=== PATIENT | female | born 1960 | race Caucasian/White ===

== ENCOUNTER 2017-05-10 11:37 | Inpatient (IN) | payer SELFPAY ==
[~2017-05-10] VITALS: Ht 170.2 cm; Wt 123.4 kg
[~2017-05-10 11:37] MED LIST: AMOX1TAB11 PO; LACT1CAP19 PO; OXYC1TAB7 PO
[2017-05-10 12:23] LABS: BASO % 0 % (0-3); EOS % 1 % (0-3); HEMATOCRIT 26.8 % (36.0-47.0); HEMOGLOBIN 8.9 g/dL (12.0-15.5); LYMPH # 1.5 x10^3/uL (1.0-4.8); LYMPH % 13 % (24-48); MEAN CORPUSCULAR HEMOGLOBIN 29 pg (25-35); MEAN CORPUSCULAR HGB CONC 33 g/dL (31-37); MEAN CORPUSCULAR VOLUME 86 fL (79-100); MONO % 8 % (0-9); NEUT % 78 % (31-73); PLATELET COUNT 319 x10^3/uL (140-400); RED CELL DISTRIBUTION WIDTH 15.6 % (11.5-14.5)
[2017-05-10 12:31] LABS: CALCIUM 8.4 mg/dL (8.5-10.1); CREATININE 0.6 mg/dL (0.6-1.0); GFR 104.2; POTASSIUM 3.5 mmol/L (3.5-5.1)
[2017-05-10 12:36] LABS: ALBUMIN 2.3 g/dL (3.4-5.0); ALBUMIN/GLOBULIN RATIO 0.5 (1.0-1.7); TOTAL BILIRUBIN 1.2 mg/dL (0.2-1.0); TOTAL PROTEIN 6.9 g/dL (6.4-8.2)
[2017-05-10 12:39] LABS: BILIRUBIN,URINE NEGATIVE (NEG); GLUCOSE,URINE NEGATIVE (NEG); NITRITE,URINE NEGATIVE (NEG); PH,URINE 7.5; PROTEIN,URINE NEGATIVE (NEG-TRACE)
[2017-05-10] MEDS ORDERED: IV NORMAL SALINE 1000ML BAG 1,000 ML IV SCH (12:44)
[2017-05-10] MEDS ORDERED: ONDANSETRON PF 4 MG/2 ML VIAL. IV ONE (12:45)
[2017-05-10] MEDS ORDERED: fentaNYL PF VIAL 100 MCG/2 ML VIAL ONE (12:50)
[2017-05-10] MEDS ORDERED: ONDANSETRON PF 4 MG/2 ML VIAL. ONE (12:50)
[2017-05-10] MEDS: fentaNYL PF VIAL 100 MCG/2 ML VIAL IV PRN ×3 (12:53→15:23)
[2017-05-10 12:54] LABS: BACTERIA,URINE FEW /HPF (0-FEW); RBC,URINE RARE /HPF (0-2); SQUAMOUS EPITHELIAL CELL,UR FEW /LPF; WBC,URINE RARE /HPF (0-4)
[2017-05-10] MEDS ORDERED: CONTRAST GIVEN MC PRN (13:00)
[2017-05-10] MEDS ORDERED: IOHEXOL 300 MG/ML 100ML VIAL. IV ONE (13:00)
--- NOTE | 2017-05-10 13:14 | ED.ADGEN ---
Past Medical History Past Medical History: No Pertinent History Additional Past Medical Histor: BLE edema Past Surgical History: Alcohol Use: None Drug Use: None Adult General Chief Complaint Chief Complaint: GROIN PAIN HPI HPI Patient is a 56 year old woman, status post a laparoscopic cholecystectomy on 05/04, who presents with complaint of abdominal pain, that she states began over the last 2 days, located in the right lower quadrant and groin region. Patient states associated with nausea, no vomiting, states she's had a bowel movement for about 8 days, states she does have chronic constipation. She denies any fevers or chills, states she feels generally unwell, but denies any new injuries , any weakness, numbness, tingling, chest pain or shortness of breath. No pain with urination. She states that she does not recall who her surgeon was, states she is scheduled to follow-up with her surgeon again in a week or so. She states she is taking antibiotics but she is not certain what antibiotic it is, states he did try taking a pain pill at home today but the pain was too bad cramping or come to the ED. She is currently is a 6 out of 10 and a throbbing stabbing constant sensation in her lower abdomen. Review of Systems Review of Systems Constitutional: Denies fever or chills. [] Eyes: Denies change in visual acuity. [] HENT: Denies nasal congestion or sore throat. [] Respiratory: Denies cough or shortness of breath. [] Cardiovascular: Denies chest pain or edema. [] GI: Right lower quadrant and groin pain, right-sided, nausea, no vomiting, no diarrhea. Positive for constipation. : Denies dysuria. [] Musculoskeletal: Denies back pain or joint pain. [] Integument: Denies rash. [] Neurologic: Denies headache, focal weakness or sensory changes. [] Endocrine: Denies polyuria or polydipsia. [] Lymphatic: Denies swollen glands. [] Psychiatric: Denies depression or anxiety. [] Current Medications Current Medications Current Medications Medications (Trade) Dose Ordered Sig/Corby Start Time Stop Time Status Last Admin Dose Admin Fentanyl Citrate (Fentanyl 2ml Vial) 100 mcg STK-MED ONCE 05/10/17 12:50 05/10/17 12:51 DC Info (Do NOT chart on this entry -- for MONITORING) 1 each PRN DAILY PRN 05/10/17 13:00 05/12/17 12:59 Iohexol (Omnipaque 300 Mg/ml) 75 ml 1X ONCE 05/10/17 13:00 05/10/17 13:01 DC 05/10/17 13:27 75 ML Ondansetron HCl (Zofran) 4 mg STK-MED ONCE 05/10/17 12:50 05/10/17 12:51 DC Piperacillin Sod/ Tazobactam Sod (Zosyn Per Pharmacy) 1 each PRN DAILY PRN 05/10/17 15:00 Piperacillin Sod/ Tazobactam Sod (Zosyn) 3.375 gm ONCE ONCE 05/10/17 15:00 05/10/17 15:01 DC 05/10/17 15:10 3.375 GM Sodium Chloride 1,000 ml @ 1,000 mls/hr Q1H 05/10/17 12:44 05/10/17 13:43 DC 05/10/17 12:53 1,000 MLS/HR Allergies Allergies Allergies Coded Allergies Type Severity Reaction Last Updated Verified tetanus and diphtheria toxoids Allergy Intermediate 05/06/17 Yes Physical Exam Physical Exam Constitutional: Well developed, well nourished, no acute distress, non-toxic appearance. [] HENT: Normocephalic, atraumatic, bilateral external ears normal, oropharynx moist, no oral exudates, nose normal. [] Eyes: PERRLA, EOMI, conjunctiva normal, no discharge. [] Neck: Normal range of motion, no tenderness, supple, no stridor. [] Cardiovascular:Heart rate regular rhythm, no murmur, S1, S2, no rubs or gallops. [] Lungs & Thorax: Bilateral breath sounds clear to auscultation, no wheezing, rhonchi, rales. No chest wall crepitus or tenderness. [] Abdomen: Bowel sounds normal, soft, patient with surgical incisions noted with clean dry gauze intact, no evidence of erythema, induration, or obvious signs of infection patient with tenderness palpation across the right lower abdomen and right upper abdomen, voluntary guarding, no rebound, rigidity, no masses, no pulsatile masses. [] Skin: Warm, dry, no erythema, no rash. [] Back: No tenderness, no CVA tenderness. [] Extremities: No tenderness, no cyanosis, no clubbing, ROM intact, no edema. Negative Homans sign.[] Neurologic: Alert and oriented X 3, normal motor function, normal sensory function, no focal deficits noted. [] Psychologic: Affect normal, judgement normal, mood normal. [] Current Patient Data Vital Signs Vital Signs Date Time Temp Pulse Resp B/P (MAP) Pulse Ox O2 Delivery O2 Flow Rate FiO2 05/10/17 16:03 89 21 148/71 (96) 95 Room Air 05/10/17 11:44 98.0 98.0 Lab Values Laboratory Tests Test 05/10/17 11:45 05/10/17 12:20 05/10/17 12:30 White Blood Count 12.0 x10^3/uL (4.0-11.0) H Red Blood Count 3.10 x10^6/uL (3.50-5.40) L Hemoglobin 8.9 g/dL (12.0-15.5) L Hematocrit 26.8 % (36.0-47.0) L Mean Corpuscular Volume 86 fL (79-100) Mean Corpuscular Hemoglobin 29 pg (25-35) Mean Corpuscular Hemoglobin Concent 33 g/dL (31-37) Red Cell Distribution Width 15.6 % (11.5-14.5) H Platelet Count 319 x10^3/uL (140-400) Neutrophils (%) (Auto) 78 % (31-73) H Lymphocytes (%) (Auto) 13 % (24-48) L Monocytes (%) (Auto) 8 % (0-9) Eosinophils (%) (Auto) 1 % (0-3) Basophils (%) (Auto) 0 % (0-3) Neutrophils # (Auto) 9.3 x10^3uL (1.8-7.7) H Lymphocytes # (Auto) 1.5 x10^3/uL (1.0-4.8) Monocytes # (Auto) 1.0 x10^3/uL (0.0-1.1) Eosinophils # (Auto) 0.1 x10^3/uL (0.0-0.7) Basophils # (Auto) 0.0 x10^3/uL (0.0-0.2) Sodium Level 137 mmol/L (136-145) Potassium Level 3.5 mmol/L (3.5-5.1) Chloride Level 99 mmol/L (98-107) Carbon Dioxide Level 29 mmol/L (21-32) Anion Gap 9 (6-14) Blood Urea Nitrogen 11 mg/dL (7-20) Creatinine 0.6 mg/dL (0.6-1.0) Estimated GFR (Cockcroft-Gault) 104.2 BUN/Creatinine Ratio 18 (6-20) Glucose Level 109 mg/dL (70-99) H Calcium Level 8.4 mg/dL (8.5-10.1) L Total Bilirubin 1.2 mg/dL (0.2-1.0) H Aspartate Amino Transferase (AST) 90 U/L (15-37) H Alanine Aminotransferase (ALT) 65 U/L (14-59) H Alkaline Phosphatase 157 U/L (46-116) H Total Protein 6.9 g/dL (6.4-8.2) Albumin 2.3 g/dL (3.4-5.0) L Albumin/Globulin Ratio 0.5 (1.0-1.7) L Lipase 98 U/L (73-393) Lactic Acid Level 0.9 mmol/L (0.4-2.0) Urine Collection Type Void Urine Color Carey Urine Clarity Clear Urine pH 7.5 Urine Specific [place] 1.015 Urine Protein Negative mg/dL (NEG-TRACE) Urine Glucose (UA) Negative mg/dL (NEG) Urine Ketones (Stick) Negative mg/dL (NEG) Urine Blood Negative (NEG) Urine Nitrite Negative (NEG) Urine Bilirubin Negative (NEG) Urine Urobilinogen Dipstick 1.0 mg/dL (0.2 mg/dL) Urine Leukocyte Esterase Negative (NEG) Urine RBC Rare /HPF (0-2) Urine WBC Rare /HPF (0-4) Urine Squamous Epithelial Cells Few /LPF Urine Bacteria Few /HPF (0-FEW) Laboratory Tests 05/10/17 11:45 Laboratory Tests 05/10/17 11:45 EKG EKG EC: Sinus rhythm, heart rate 83 beats/minute, left axis deviation, QTC of 445, NV 160, QRS of 88, intervals within normal limits, no ST elevations or depressions, contour normality is noted in the inferior leads, abnormal ECG, does not meet STEMI criteria. As interpreted by me.[] Radiology/Procedures Radiology/Procedures [][facility] [address] [place] [address] IMAGING REPORT Signed PATIENT: ROMULO SALAZAR ACCOUNT: [id number] : 1960 LOCATION: ER AGE: 56 SEX: F EXAM STATUS: REG ER ORD. PHYSICIAN: NIKITA OWEN DO REASON: Abd pain/s/p laparoscopic cholecystectomy PROCEDURE: CT ABD PELV W/ IV CONTRST ONLY Indication: Abdominal pain. Post laparoscopic cholecystectomy. Technique: Axial images and coronal and sagittal reformatted images are provided. 75 mL of intravenous Omnipaque 300 was administered without complication. No comparison is available. One or more of the following individualized dose reduction techniques were utilized for this examination: 1. Automated exposure control 2. Adjustment of the mA and/or kV according to patient size 3. Use of iterative reconstruction technique Findings: There is atelectasis in the right lung base. There is a minimal right pleural effusion. The heart is not enlarged. There is mild fatty infiltration of the liver. Patient has underwent cholecystectomy. Fluid collection in the gallbladder fossa could represent hematoma measuring 7 x 3 cm in size. There is also fluid extending along the inferior surface of the liver. This perihepatic fluid has some peripheral enhancement. Please see axial image 42 and coronal images 38-44. This collection of fluid is not large enough to form a pigtail drain within it. The pancreas and the adrenals are unremarkable. There is ascites noted in the left upper quadrant adjacent to the spleen which is hyperdense measuring 60 Hounsfield units. The kidneys are symmetrically perfused. There is minimal atheromatous disease in the abdominal aorta. Retroperitoneal lymph nodes may be reactive. No adenopathy is apparent. There is probably a duodenal diverticulum. There is no dilated small bowel loop or air-fluid level. There is no free air. Hemoperitoneum about the spleen extends into the left paracolic gutter. Hemoperitoneum also extends into the pelvis. Bladder is unremarkable. Calcified phleboliths are noted. There is no adnexal mass. There are minimal degenerative changes in the spine. Impression: 1. Fluid collection noted along the liver with some peripheral enhancement. This could represent abscess. Bile leak/biloma is a consideration. Hepatobiliary scintigraphy can be considered. 2. Small amount of hemoperitoneum noted in the left upper quadrant and extending down into the left paracolic gutter and into the pelvis. 3. Minimal right pleural effusion. DICTATED and SIGNED BY: LOREE VELIZ MD DATE: 05/10/17 9246 CC: NIKITA OWEN DO; NO PCP ~ Course & Med Decision Making Course & Med Decision Making Pertinent Labs and Imaging studies reviewed. (See chart for details) Patient is very uncomfortable, agreeable to receiving pain medication, antiemetics, IV fluids, and CT of abdomen and pelvis. Laboratory studies also obtained. Patient noted to have mild leukocytosis at 12, with left shift without bandemia, LFTs are elevated, mildly, which may be due to patient's recent surgery, however patient noted to have fluid collection noted along the liver with some peripheral enhancement, which could represent abscess, with bile leak/biloma as a consideration. As above discussed with Dr. Multani, the patient's surgeon, at this time the patient had receiving a virus at home, will admit to the hospitalist service, with surgery consultation, and will continue IV antibiotics, symptomatic management. No indications for emergent surgical intervention or eye or intervention at this time based on findings. Will order HIDA scan for additional evaluation. I did discuss this with patient, she is resting more comfortably, although she continues to have discomfort after receiving several doses of analgesia in the ED, is agreeable with plan for admission and additional evaluation and monitoring with symptom management. Findings as above discussed with Dr. Lucas of internal medicine, patient was accepted to her service as a full admission to the medical surgical floor. Patient remained stable during her ED course, transfer to the floor without issue. Bridge orders entered per discussion. Dragon Disclaimer Dragon Disclaimer This electronic medical record was generated, in whole or in part, using a voice recognition dictation system. Departure Impression: Primary Impression: Abdominal pain Disposition: ADMITTED INPATIENT Admitting Physician: Other Condition: IMPROVED NIKITA OWEN DO May 10, 2017 13:14
--- NOTE | 2017-05-10 13:18 | EKG ---
[facility] [address] [place] [address] Test Date: 2017-05-10 Test Time: 13:02:05 Pat Name: ROMULO SALAZAR Department: Room: Gender: F Inspector Floor Sub Assembly: : 1960 Requested By: NIKITA OWEN Order Number: [id number] Reading MD: Measurements Intervals [place] Rate: 83 P: -42 IL: 160 QRS: -1 QRSD: 88 T: 18 QT: 374 QTc: 445 Interpretive Statements SINUS RHYTHM LEFTWARD AXIS NON SPECIFIC T ABNORMALITY BORDERLINE ECG No previous ECG available for comparison
--- NOTE | 2017-05-10 14:01 | RAD ---
Indication: Abdominal pain. Post laparoscopic cholecystectomy. Technique: Axial images and coronal and sagittal reformatted images are provided. 75 mL of intravenous Omnipaque 300 was administered without complication. No comparison is available. One or more of the following individualized dose reduction techniques were utilized for this examination: 1. Automated exposure control 2. Adjustment of the mA and/or kV according to patient size 3. Use of iterative reconstruction technique Findings: There is atelectasis in the right lung base. There is a minimal right pleural effusion. The heart is not enlarged. There is mild fatty infiltration of the liver. Patient has underwent cholecystectomy. Fluid collection in the gallbladder fossa could represent hematoma measuring 7 x 3 cm in size. There is also fluid extending along the inferior surface of the liver. This perihepatic fluid has some peripheral enhancement. Please see axial image 42 and coronal images 38-44. This collection of fluid is not large enough to form a pigtail drain within it. The pancreas and the adrenals are unremarkable. There is ascites noted in the left upper quadrant adjacent to the spleen which is hyperdense measuring 60 Hounsfield units. The kidneys are symmetrically perfused. There is minimal atheromatous disease in the abdominal aorta. Retroperitoneal lymph nodes may be reactive. No adenopathy is apparent. There is probably a duodenal diverticulum. There is no dilated small bowel loop or air-fluid level. There is no free air. Hemoperitoneum about the spleen extends into the left paracolic gutter. Hemoperitoneum also extends into the pelvis. Bladder is unremarkable. Calcified phleboliths are noted. There is no adnexal mass. There are minimal degenerative changes in the spine. Impression: 1. Fluid collection noted along the liver with some peripheral enhancement. This could represent abscess. Bile leak/biloma is a consideration. Hepatobiliary scintigraphy can be considered. 2. Small amount of hemoperitoneum noted in the left upper quadrant and extending down into the left paracolic gutter and into the pelvis. 3. Minimal right pleural effusion.
[2017-05-10] MEDS ORDERED: PIPERACILLIN/TAZO IV Push 3.375 GM VIAL. IVP ONE (15:00)
[2017-05-10] MEDS ORDERED: PIP/TAZO PER PHARMACY MC PRN (15:00)
[2017-05-10] MEDS ORDERED: ACETAMINOPHEN 325 MG TABLET. PO PRN (16:45)
[2017-05-10] MEDS ORDERED: ONDANSETRON PF 4 MG/2 ML VIAL. IV PRN (16:45)
[2017-05-10] MEDS: MORPHINE SULFATE 4 MG/ML DISP.SYRIN. IV PRN ×2 (17:29→22:09)
[2017-05-10 17:30] VITALS: BP 149/80
[2017-05-10] MEDS ORDERED: oxyCODONE/APAP 5/325 1 TAB TABLET PO PRN (18:30)
--- NOTE | 2017-05-10 18:43 | HP ---
ADMIT DATE: 05/10/2017 CHIEF COMPLAINT: Abdominal pain. HISTORY OF PRESENT ILLNESS: The patient is a morbidly obese 56-year-old woman who had undergone cholecystectomy on 05/05/2017. Postop course had been minorly complicated by leukocytosis, which resolved with antibiotics. The patient was discharged on antibiotics. She now presents with increasing abdominal pain, especially in the right lower quadrant. The patient relates that especially over the past 3 days, her pain has been moderately severe. Pain medications that she went home with do not seem to hold the pain anymore. She denies any fevers, chills, any nausea. She does have significant constipation, has not moved since 2 days prior to her surgery. She has underlying constipation, probably worsened by her narcotics. In the Emergency Room, a CAT scan was obtained, which revealed a fluid collection along the liver with some peripheral enhancement which could represent an abscess. Small amount of hemoperitoneum noted in the left upper quadrant extending down into the left pericolic gutter and into the pelvis. No abnormalities in the right lower quadrant. PAST MEDICAL HISTORY: Cholecystectomy as above, status post x 3. FAMILY HISTORY: Negative to her knowledge. SOCIAL HISTORY: She is , living with her , unfortunately continues to smoke about a pack a day and denies any alcohol or drug use. ALLERGIES: TETANUS and DIPHTHERIA TOXOIDS. MEDICATIONS: MAR reconciled with home medications. REVIEW OF SYSTEMS: Positive as per HPI. Rest of organ system review asked and answered negatively. PHYSICAL EXAMINATION: VITAL SIGNS: Show a blood pressure of 149/80, heart rate of 89, respiratory rate at 20. She is afebrile. GENERAL: This is a morbidly obese 56-year-old woman, awake, alert, in no acute distress, although very uncomfortable. HEENT: Shows no scleral icterus. NECK: Supple. LUNGS: Clear. HEART: Regular rate and rhythm. ABDOMEN: Has positive bowel sounds, soft, moderate to marked tenderness to palpation with lifting pannus in the right lower quadrant. The trocar sites are covered with Steri-Strips. Two have minimally dehisced with some secretion. EXTREMITIES: Show no edema. SKIN: Warm, soft and dry. LABORATORY DATA: CBC with a WBC of 12.0, hemoglobin 8.9, platelets of 319. Normal electrolytes. Chemistries with a BUN and creatinine of 11 and 0.6, normal electrolytes. LFTs slightly elevated at 90 and 65. Transaminases and alkaline phosphatase of 157, total bilirubin of 1.2, all of which are increased compared to labs drawn 2 days ago. Albumin at 2.3. Urine negative for infectious signs. RADIOGRAPHIC FINDINGS: CT of the abdomen as per HPI. ASSESSMENT AND PLAN: The patient is a 56-year-old woman presenting with increasing abdominal pain and constipation. A CT shows several abnormalities, none of which are definitive for infectious etiology. Without any fevers or elevation in her WBC, first consideration would be constipation. We will address this with mineral oil enema and GoLYTELY considering she has not moved in over a week. However, given the recent surgery we will have to be cautious for potential infectious etiology including a peritoneal abscess. She, however, is fairly asymptomatic in the area where a CT indicates abnormalities. We will switch her p.o. antibiotics to Zosyn. Continue to monitor. Surgery has been consulted. Without resolution of her symptoms, we will probably repeat a CT. We will hold off on Lovenox prophylaxis for now. Start SCDs in consideration of potential interventions. She is an ongoing smoker. We will start her on a nicotine patch as well. Pain will be addressed with IV morphine as well as oxycodone. Discussed with her that any narcotic pain medication will worsen constipation. DEDRICK JHA MD DR: SHAUNA/nts JOB#: [id number] / [id number] ROSANNA
[2017-05-10 19:00] VITALS: BP 135/75
[2017-05-10] MEDS ORDERED: PEG 3350/NA SULF,BICARB,CL/KCL 4,000 ML SOLUTION. PO ONE (19:00)
[2017-05-10] MEDS ORDERED: MINERAL OIL 133 ML ENEMA. PR ONE (19:00)
[2017-05-10] MEDS: LACTOBACILLUS RHAMNOSUS GG 1 CAPSULE. PO SCH (20:47)
[2017-05-10] MEDS: PIPERACILLIN/TAZO IV Push 3.375 GM VIAL. IVP SCH (22:09)
[2017-05-10 23:00] VITALS: BP 117/70
[2017-05-11 03:00] VITALS: BP 120/78
[2017-05-11 04:38] LABS: BASO % 1 % (0-3); EOS % 1 % (0-3); HEMATOCRIT 24.6 % (36.0-47.0); HEMOGLOBIN 8.3 g/dL (12.0-15.5); LYMPH # 1.1 x10^3/uL (1.0-4.8); LYMPH % 12 % (24-48); MEAN CORPUSCULAR HEMOGLOBIN 29 pg (25-35); MEAN CORPUSCULAR HGB CONC 34 g/dL (31-37); MEAN CORPUSCULAR VOLUME 87 fL (79-100); MONO % 9 % (0-9); NEUT % 78 % (31-73); PLATELET COUNT 300 x10^3/uL (140-400); RED BLOOD COUNT 2.84 x10^6/uL (3.50-5.40); RED CELL DISTRIBUTION WIDTH 15.6 % (11.5-14.5); WHITE BLOOD COUNT 9.8 x10^3/uL (4.0-11.0)
[2017-05-11 05:18] LABS: CALCIUM 8.5 mg/dL (8.5-10.1); CREATININE 0.6 mg/dL (0.6-1.0); GFR 104.2; POTASSIUM 3.6 mmol/L (3.5-5.1)
[2017-05-11 05:49] LABS: ALBUMIN 2.2 g/dL (3.4-5.0); DIRECT BILIRUBIN 1.3 mg/dL (0.0-0.2); TOTAL BILIRUBIN 1.8 mg/dL (0.2-1.0); TOTAL PROTEIN 5.8 g/dL (6.4-8.2)
[2017-05-11] MEDS: PIPERACILLIN/TAZO IV Push 3.375 GM VIAL. IVP SCH ×3 (05:50→20:50)
[2017-05-11] MEDS: fentaNYL PF VIAL 100 MCG/2 ML VIAL IV PRN (05:52)
[2017-05-11 07:00] VITALS: BP 167/93
[2017-05-11] MEDS: LACTOBACILLUS RHAMNOSUS GG 1 CAPSULE. PO SCH ×2 (09:58→20:52)
[2017-05-11] MEDS ORDERED: ACETAMINOPHEN 500 MG TABLET PO PRN (10:15)
[2017-05-11] MEDS ORDERED: ONDANSETRON ODT 4 MG TAB.RAPDIS. PO PRN (10:15)
[2017-05-11] MEDS ORDERED: ONDANSETRON PF 4 MG/2 ML VIAL. IV PRN (10:15)
--- NOTE | 2017-05-11 10:29 | RAD ---
Radionuclide hepatobiliary scan, 05/11/2017: History: Abdominal pain, check for bile leak Following IV injection of 5.5 mCi of technetium 99m Choletec there was prompt uptake of the radionuclide from the blood stream by the liver. The gallbladder is surgically absent. Activity is present in the common bile duct and small bowel at 12 minutes. At 22 minutes the patient refused to continue with the study. No bile leak was identified on this abbreviated exam. IMPRESSION: 1. Status post cholecystectomy. 2. No significant abnormality is detected.
--- NOTE | 2017-05-11 11:28 | PDOC ---
PROGRESS NOTES Chief Complaint Chief Complaint Abdominal pain, status post cholecystectomy 05/05 by our general surgery team Obstipation Obesity BMI 42 History of Present Illness History of Present Illness Having a bowel movement now, she claims she will feel much better after this p.m. HIDA scan is normal CAT scan on admission shows possible abscess, WBC was 11 admission now on IV Zosyn and has normalized., no fevers. Plan of care: Await general surgery, nothing by mouth for now. add stool regimen. Continue IV Zosyn for now. Start by mouth pain medicines Discussed with SABRINA Carvalho Vitals Vitals Vital Signs Date Time Temp Pulse Resp B/P (MAP) Pulse Ox O2 Delivery O2 Flow Rate FiO2 05/11/17 10:07 12 94 Room Air 05/11/17 07:00 98.1 85 167/93 (117) 98.1 Physical Exam General: Alert, Oriented X3, Cooperative Heart: Regular rate, Normal S1, Normal S2 Lungs: Clear Abdomen: Normal bowel sounds, Soft Extremities: No clubbing, No cyanosis Skin: No rashes, No breakdown Labs LABS Laboratory Tests Test 05/10/17 11:45 05/10/17 12:20 05/10/17 12:30 05/11/17 03:35 White Blood Count 12.0 x10^3/uL (4.0-11.0) 9.8 x10^3/uL (4.0-11.0) Red Blood Count 3.10 x10^6/uL (3.50-5.40) 2.84 x10^6/uL (3.50-5.40) Hemoglobin 8.9 g/dL (12.0-15.5) 8.3 g/dL (12.0-15.5) Hematocrit 26.8 % (36.0-47.0) 24.6 % (36.0-47.0) Mean Corpuscular Volume 86 fL (79-100) 87 fL (79-100) Mean Corpuscular Hemoglobin 29 pg (25-35) 29 pg (25-35) Mean Corpuscular Hemoglobin Concent 33 g/dL (31-37) 34 g/dL (31-37) Red Cell Distribution Width 15.6 % (11.5-14.5) 15.6 % (11.5-14.5) Platelet Count 319 x10^3/uL (140-400) 300 x10^3/uL (140-400) Neutrophils (%) (Auto) 78 % (31-73) 78 % (31-73) Lymphocytes (%) (Auto) 13 % (24-48) 12 % (24-48) Monocytes (%) (Auto) 8 % (0-9) 9 % (0-9) Eosinophils (%) (Auto) 1 % (0-3) 1 % (0-3) Basophils (%) (Auto) 0 % (0-3) 1 % (0-3) Neutrophils # (Auto) 9.3 x10^3uL (1.8-7.7) 7.6 x10^3uL (1.8-7.7) Lymphocytes # (Auto) 1.5 x10^3/uL (1.0-4.8) 1.1 x10^3/uL (1.0-4.8) Monocytes # (Auto) 1.0 x10^3/uL (0.0-1.1) 0.9 x10^3/uL (0.0-1.1) Eosinophils # (Auto) 0.1 x10^3/uL (0.0-0.7) 0.1 x10^3/uL (0.0-0.7) Basophils # (Auto) 0.0 x10^3/uL (0.0-0.2) 0.0 x10^3/uL (0.0-0.2) Sodium Level 137 mmol/L (136-145) 138 mmol/L (136-145) Potassium Level 3.5 mmol/L (3.5-5.1) 3.6 mmol/L (3.5-5.1) Chloride Level 99 mmol/L (98-107) 101 mmol/L (98-107) Carbon Dioxide Level 29 mmol/L (21-32) 30 mmol/L (21-32) Anion Gap 9 (6-14) 7 (6-14) Blood Urea Nitrogen 11 mg/dL (7-20) 10 mg/dL (7-20) Creatinine 0.6 mg/dL (0.6-1.0) 0.6 mg/dL (0.6-1.0) Estimated GFR (Cockcroft-Gault) 104.2 104.2 BUN/Creatinine Ratio 18 (6-20) Glucose Level 109 mg/dL (70-99) 107 mg/dL (70-99) Calcium Level 8.4 mg/dL (8.5-10.1) 8.5 mg/dL (8.5-10.1) Total Bilirubin 1.2 mg/dL (0.2-1.0) 1.8 mg/dL (0.2-1.0) Aspartate Amino Transf (AST/SGOT) 90 U/L (15-37) 196 U/L (15-37) Alanine Aminotransferase (ALT/SGPT) 65 U/L (14-59) 120 U/L (14-59) Alkaline Phosphatase 157 U/L (46-116) 290 U/L (46-116) Total Protein 6.9 g/dL (6.4-8.2) 5.8 g/dL (6.4-8.2) Albumin 2.3 g/dL (3.4-5.0) 2.2 g/dL (3.4-5.0) Albumin/Globulin Ratio 0.5 (1.0-1.7) Lipase 98 U/L (73-393) Lactic Acid Level 0.9 mmol/L (0.4-2.0) Urine Collection Type Void Urine Color Carey Urine Clarity Clear Urine pH 7.5 Urine Specific [place] 1.015 Urine Protein Negative mg/dL (NEG-TRACE) Urine Glucose (UA) Negative mg/dL (NEG) Urine Ketones (Stick) Negative mg/dL (NEG) Urine Blood Negative (NEG) Urine Nitrite Negative (NEG) Urine Bilirubin Negative (NEG) Urine Urobilinogen Dipstick 1.0 mg/dL (0.2 mg/dL) Urine Leukocyte Esterase Negative (NEG) Urine RBC Rare /HPF (0-2) Urine WBC Rare /HPF (0-4) Urine Squamous Epithelial Cells Few /LPF Urine Bacteria Few /HPF (0-FEW) Direct Bilirubin 1.3 mg/dL (0.0-0.2) Review of Systems Review of Systems Constipated, postop pain, no nausea no lightheadedness no chest pain no shortness of breath Comment Review of Relevant I have reviewed the following items jasson (where applicable) has been applied. Labs Laboratory Tests Test 05/10/17 11:45 05/10/17 12:20 05/10/17 12:30 05/11/17 03:35 White Blood Count 12.0 x10^3/uL (4.0-11.0) 9.8 x10^3/uL (4.0-11.0) Red Blood Count 3.10 x10^6/uL (3.50-5.40) 2.84 x10^6/uL (3.50-5.40) Hemoglobin 8.9 g/dL (12.0-15.5) 8.3 g/dL (12.0-15.5) Hematocrit 26.8 % (36.0-47.0) 24.6 % (36.0-47.0) Mean Corpuscular Volume 86 fL (79-100) 87 fL (79-100) Mean Corpuscular Hemoglobin 29 pg (25-35) 29 pg (25-35) Mean Corpuscular Hemoglobin Concent 33 g/dL (31-37) 34 g/dL (31-37) Red Cell Distribution Width 15.6 % (11.5-14.5) 15.6 % (11.5-14.5) Platelet Count 319 x10^3/uL (140-400) 300 x10^3/uL (140-400) Neutrophils (%) (Auto) 78 % (31-73) 78 % (31-73) Lymphocytes (%) (Auto) 13 % (24-48) 12 % (24-48) Monocytes (%) (Auto) 8 % (0-9) 9 % (0-9) Eosinophils (%) (Auto) 1 % (0-3) 1 % (0-3) Basophils (%) (Auto) 0 % (0-3) 1 % (0-3) Neutrophils # (Auto) 9.3 x10^3uL (1.8-7.7) 7.6 x10^3uL (1.8-7.7) Lymphocytes # (Auto) 1.5 x10^3/uL (1.0-4.8) 1.1 x10^3/uL (1.0-4.8) Monocytes # (Auto) 1.0 x10^3/uL (0.0-1.1) 0.9 x10^3/uL (0.0-1.1) Eosinophils # (Auto) 0.1 x10^3/uL (0.0-0.7) 0.1 x10^3/uL (0.0-0.7) Basophils # (Auto) 0.0 x10^3/uL (0.0-0.2) 0.0 x10^3/uL (0.0-0.2) Sodium Level 137 mmol/L (136-145) 138 mmol/L (136-145) Potassium Level 3.5 mmol/L (3.5-5.1) 3.6 mmol/L (3.5-5.1) Chloride Level 99 mmol/L (98-107) 101 mmol/L (98-107) Carbon Dioxide Level 29 mmol/L (21-32) 30 mmol/L (21-32) Anion Gap 9 (6-14) 7 (6-14) Blood Urea Nitrogen 11 mg/dL (7-20) 10 mg/dL (7-20) Creatinine 0.6 mg/dL (0.6-1.0) 0.6 mg/dL (0.6-1.0) Estimated GFR (Cockcroft-Gault) 104.2 104.2 BUN/Creatinine Ratio 18 (6-20) Glucose Level 109 mg/dL (70-99) 107 mg/dL (70-99) Calcium Level 8.4 mg/dL (8.5-10.1) 8.5 mg/dL (8.5-10.1) Total Bilirubin 1.2 mg/dL (0.2-1.0) 1.8 mg/dL (0.2-1.0) Aspartate Amino Transf (AST/SGOT) 90 U/L (15-37) 196 U/L (15-37) Alanine Aminotransferase (ALT/SGPT) 65 U/L (14-59) 120 U/L (14-59) Alkaline Phosphatase 157 U/L (46-116) 290 U/L (46-116) Total Protein 6.9 g/dL (6.4-8.2) 5.8 g/dL (6.4-8.2) Albumin 2.3 g/dL (3.4-5.0) 2.2 g/dL (3.4-5.0) Albumin/Globulin Ratio 0.5 (1.0-1.7) Lipase 98 U/L (73-393) Lactic Acid Level 0.9 mmol/L (0.4-2.0) Urine Collection Type Void Urine Color Carey Urine Clarity Clear Urine pH 7.5 Urine Specific [place] 1.015 Urine Protein Negative mg/dL (NEG-TRACE) Urine Glucose (UA) Negative mg/dL (NEG) Urine Ketones (Stick) Negative mg/dL (NEG) Urine Blood Negative (NEG) Urine Nitrite Negative (NEG) Urine Bilirubin Negative (NEG) Urine Urobilinogen Dipstick 1.0 mg/dL (0.2 mg/dL) Urine Leukocyte Esterase Negative (NEG) Urine RBC Rare /HPF (0-2) Urine WBC Rare /HPF (0-4) Urine Squamous Epithelial Cells Few /LPF Urine Bacteria Few /HPF (0-FEW) Direct Bilirubin 1.3 mg/dL (0.0-0.2) Laboratory Tests Test 05/10/17 11:45 05/10/17 12:20 05/10/17 12:30 05/11/17 03:35 White Blood Count 12.0 x10^3/uL (4.0-11.0) 9.8 x10^3/uL (4.0-11.0) Red Blood Count 3.10 x10^6/uL (3.50-5.40) 2.84 x10^6/uL (3.50-5.40) Hemoglobin 8.9 g/dL (12.0-15.5) 8.3 g/dL (12.0-15.5) Hematocrit 26.8 % (36.0-47.0) 24.6 % (36.0-47.0) Mean Corpuscular Volume 86 fL (79-100) 87 fL (79-100) Mean Corpuscular Hemoglobin 29 pg (25-35) 29 pg (25-35) Mean Corpuscular Hemoglobin Concent 33 g/dL (31-37) 34 g/dL (31-37) Red Cell Distribution Width 15.6 % (11.5-14.5) 15.6 % (11.5-14.5) Platelet Count 319 x10^3/uL (140-400) 300 x10^3/uL (140-400) Neutrophils (%) (Auto) 78 % (31-73) 78 % (31-73) Lymphocytes (%) (Auto) 13 % (24-48) 12 % (24-48) Monocytes (%) (Auto) 8 % (0-9) 9 % (0-9) Eosinophils (%) (Auto) 1 % (0-3) 1 % (0-3) Basophils (%) (Auto) 0 % (0-3) 1 % (0-3) Neutrophils # (Auto) 9.3 x10^3uL (1.8-7.7) 7.6 x10^3uL (1.8-7.7) Lymphocytes # (Auto) 1.5 x10^3/uL (1.0-4.8) 1.1 x10^3/uL (1.0-4.8) Monocytes # (Auto) 1.0 x10^3/uL (0.0-1.1) 0.9 x10^3/uL (0.0-1.1) Eosinophils # (Auto) 0.1 x10^3/uL (0.0-0.7) 0.1 x10^3/uL (0.0-0.7) Basophils # (Auto) 0.0 x10^3/uL (0.0-0.2) 0.0 x10^3/uL (0.0-0.2) Sodium Level 137 mmol/L (136-145) 138 mmol/L (136-145) Potassium Level 3.5 mmol/L (3.5-5.1) 3.6 mmol/L (3.5-5.1) Chloride Level 99 mmol/L (98-107) 101 mmol/L (98-107) Carbon Dioxide Level 29 mmol/L (21-32) 30 mmol/L (21-32) Anion Gap 9 (6-14) 7 (6-14) Blood Urea Nitrogen 11 mg/dL (7-20) 10 mg/dL (7-20) Creatinine 0.6 mg/dL (0.6-1.0) 0.6 mg/dL (0.6-1.0) Estimated GFR (Cockcroft-Gault) 104.2 104.2 BUN/Creatinine Ratio 18 (6-20) Glucose Level 109 mg/dL (70-99) 107 mg/dL (70-99) Calcium Level 8.4 mg/dL (8.5-10.1) 8.5 mg/dL (8.5-10.1) Total Bilirubin 1.2 mg/dL (0.2-1.0) 1.8 mg/dL (0.2-1.0) Aspartate Amino Transf (AST/SGOT) 90 U/L (15-37) 196 U/L (15-37) Alanine Aminotransferase (ALT/SGPT) 65 U/L (14-59) 120 U/L (14-59) Alkaline Phosphatase 157 U/L (46-116) 290 U/L (46-116) Total Protein 6.9 g/dL (6.4-8.2) 5.8 g/dL (6.4-8.2) Albumin 2.3 g/dL (3.4-5.0) 2.2 g/dL (3.4-5.0) Albumin/Globulin Ratio 0.5 (1.0-1.7) Lipase 98 U/L (73-393) Lactic Acid Level 0.9 mmol/L (0.4-2.0) Urine Collection Type Void Urine Color Carey Urine Clarity Clear Urine pH 7.5 Urine Specific [place] 1.015 Urine Protein Negative mg/dL (NEG-TRACE) Urine Glucose (UA) Negative mg/dL (NEG) Urine Ketones (Stick) Negative mg/dL (NEG) Urine Blood Negative (NEG) Urine Nitrite Negative (NEG) Urine Bilirubin Negative (NEG) Urine Urobilinogen Dipstick 1.0 mg/dL (0.2 mg/dL) Urine Leukocyte Esterase Negative (NEG) Urine RBC Rare /HPF (0-2) Urine WBC Rare /HPF (0-4) Urine Squamous Epithelial Cells Few /LPF Urine Bacteria Few /HPF (0-FEW) Direct Bilirubin 1.3 mg/dL (0.0-0.2) Medications Current Medications Fentanyl Citrate (Fentanyl 2ml Vial) 50 mcg PRN Q15MIN PRN IV PAIN GREATER THAN 3/10 Last administered on 05/10/17 15:23; Start 05/10/17 at 12:45; Stop 05/10/17 at 22:20; Status DC Sodium Chloride 1,000 ml @ 1,000 mls/hr Q1H IV Last administered on 12:53; Start 05/10/17 at 12:44; Stop 05/10/17 at 13:43; Status DC Ondansetron HCl (Zofran) 4 mg 1X ONCE IV Last administered on 05/10/17 12:53 ; Start 05/10/17 at 12:45; Stop 05/10/17 at 12:49; Status DC Ondansetron HCl (Zofran) 4 mg STK-MED ONCE .ROUTE ; Start 05/10/17 at 12:50; Stop 05/10/17 at 12:51; Status DC Fentanyl Citrate (Fentanyl 2ml Vial) 100 mcg STK-MED ONCE .ROUTE ; Start at 12:50; Stop 05/10/17 at 12:51; Status DC Iohexol (Omnipaque 300 Mg/ml) 75 ml 1X ONCE IV Last administered on 13:27; Start 05/10/17 at 13:00; Stop 05/10/17 at 13:01; Status DC Info (Do NOT chart on this entry -- for MONITORING) 1 each PRN DAILY PRN MC SEE COMMENTS; Start 05/10/17 at 13:00; Stop 05/12/17 at 12:59 Piperacillin Sod/ Tazobactam Sod (Zosyn Per Pharmacy) 1 each PRN DAILY PRN MC SEE COMMENTS; Start 05/10/17 at 15:00 Piperacillin Sod/ Tazobactam Sod (Zosyn) 3.375 gm ONCE ONCE IVP Last administered on 05/10/17 15:10; Start 05/10/17 at 15:00; Stop 05/10/17 at 15 :01; Status DC Piperacillin Sod/ Tazobactam Sod (Zosyn) 3.375 gm Q6HRS IVP Last administered on 05/11/17 05:50; Start 05/10/17 at 22:30 Ondansetron HCl (Zofran) 4 mg PRN Q8HRS PRN IV NAUSEA/VOMITING; Start at 16:45; Stop 05/11/17 at 16:44 Morphine Sulfate 4 mg PRN Q2HR PRN IV PAIN Last administered on 05/10/17 22: 09; Start 05/10/17 at 16:45; Stop 05/11/17 at 16:44 Acetaminophen (Tylenol) 650 mg PRN Q4HRS PRN PO FEVER; Start 05/10/17 at 16:45 ; Stop 05/11/17 at 16:44 Lactobacillus Rhamnosus (Culturelle) 1 cap BID PO Last administered on 09:58; Start 05/10/17 at 21:00 Oxycodone/ Acetaminophen (Percocet 5/325) 1 tab PRN Q4HRS PRN PO MODERATED PAIN Last administered on 05/11/17 10:07; Start 05/10/17 at 18:30 Mineral Oil (Fleet Mineral Oil) 133 ml 1X ONCE MS Last administered on 20:47; Start 05/10/17 at 19:00; Stop 05/10/17 at 19:01; Status DC Sodium Cl/Sod Bicarb/Potass Cl/ PEG (Golytely) 4,000 ml 1X ONCE PO Last administered on 05/10/17 20:47; Start 05/10/17 at 19:00; Stop 05/10/17 at 19 :01; Status DC Fentanyl Citrate (Fentanyl 2ml Vial) 25 mcg PRN Q2HR PRN IV SEVERE PAIN Last administered on 05/11/17 05:52; Start 05/10/17 at 22:30 Ondansetron HCl (Zofran) 4 mg PRN Q6HRS PRN IV NAUSEA/VOMITING; Start at 10:15 Ondansetron HCl (Zofran Odt) 4 mg PRN Q6HRS PRN PO NAUSEA/VOMITING; Start 05/16 at 10:15 Acetaminophen (Tylenol) 500 mg PRN Q6HRS PRN PO MILD PAIN / TEMP; Start at 10:15 Potassium Chloride/Sodium Chloride 1,000 ml @ 75 mls/hr 1X ONCE IV ; Start at 10:15; Stop 05/11/17 at 23:34 Oxycodone/ Acetaminophen (Percocet 5/325) 1 tab PRN Q4HRS PRN PO PAIN; Start 05/11/17 at 11:30 Oxycodone/ Acetaminophen (Percocet 10/325) 1 tab PRN Q4HRS PRN PO pain; Start 05/11/17 at 11:30 Active Scripts Active Oxycodone-Acetaminophen 5-325 (Oxycodone Hcl/Acetaminophen) 1 Each Tablet 1 Tab PO PRN Q4HRS PRN Culturelle (Lactobacillus Rhamnosus Gg) 1 Each Cap.sprink 1 Cap PO BID Amox Tr-K Clv 875-125 Mg Tab (Amoxicillin/Potassium Clav) 1 Each Tablet 1 Tab PO BID Vitals/I & O Vital Sign - Last 24 Hours 05/10/17 05/10/17 05/10/17 05/10/17 11:38 11:44 12:53 14:09 Temp 98.0 98.0 Pulse 94 94 Resp 20 20 18 18 B/P (MAP) 184/102 (129) 184/102 (129) Pulse Ox 95 95 95 93 O2 Delivery Room Air Room Air Room Air Room Air 05/10/17 05/10/17 05/10/17 05/10/17 14:10 15:03 15:23 16:03 Pulse 88 87 89 Resp 20 19 20 21 B/P (MAP) 162/80 (107) 149/75 (99) 148/71 (96) Pulse Ox 95 95 94 95 O2 Delivery Room Air Room Air Room Air Room Air 05/10/17 05/10/17 05/10/17 05/10/17 16:55 17:29 17:30 19:00 Temp 97.9 98.8 97.9 98.8 Pulse 89 83 Resp 22 24 B/P (MAP) 149/80 (103) 135/75 (95) Pulse Ox 95 93 O2 Delivery Room Air Room Air Room Air Room Air 05/10/17 05/10/17 05/10/17 05/10/17 19:30 22:09 22:39 23:00 Temp 99.5 99.5 Pulse 90 Resp 20 B/P (MAP) 117/70 (86) Pulse Ox 90 O2 Delivery Room Air Room Air Room Air Room Air 05/11/17 05/11/17 05/11/17 05/11/17 03:00 05:52 06:22 07:00 Temp 98.8 98.1 98.8 98.1 Pulse 85 85 Resp 16 16 B/P (MAP) 120/78 (92) 167/93 (117) Pulse Ox 91 93 O2 Delivery Room Air Room Air Room Air Room Air 05/11/17 05/11/17 08:15 10:07 Resp 12 Pulse Ox 94 O2 Delivery Room Air Room Air Intake and Output 05/10/17 05/10/17 05/11/17 15:00 23:00 07:00 Intake Total 1000 ml 750 ml Balance 1000 ml 750 ml CHRISTOPHE COOK MD May 11, 2017 11:28
[2017-05-11] MEDS ORDERED: MAGNESIUM HYDROXIDE 2,400 MG/30 ML ORAL.SUSP. PO PRN (11:30)
[2017-05-11] MEDS ORDERED: oxyCODONE/APAP 5/325 1 TAB TABLET PO PRN (11:30)
--- NOTE | 2017-05-11 12:02 | PDOC2 ---
ROD QUIÑONES [employer] 05/11/17 1202: CONSULT Date of Consult Date of Consult DATE: 05/11/17 TIME: 11:57 Reason for Consult Reason for Consult: abd pain, s/p florence Referring Physician Referring Physician: ER Identification/Chief Complaint Chief Complaint abd pain Problems: Source Source: Chart review, Patient History of Present Illness Reason for Visit: Reports RLQ abdominal pain for several days. She underwent a lap florence with Dr Torres on 05/05. She reports problems with constipation since her surgery. CT showed a fluid collection RUQ, HIDA was negative for a bile leak. Her LFTS today were elevated. She did have a large BM and currently feels much better. Past Medical History Cardiovascular: No pertinent hx Pulmonary: No pertinent hx GI: Constipation Hepatobiliary: Hep A/B/C Past Surgical History Past Surgical History: Cholecystectomy, Family History Family History: Hypertension Social History ALCOHOL: none Drugs: None Lives: with Family Current Medications Current Medications Current Medications Fentanyl Citrate (Fentanyl 2ml Vial) 50 mcg PRN Q15MIN PRN IV PAIN GREATER THAN 3/10 Last administered on 05/10/17 15:23; Start 05/10/17 at 12:45; Stop 05/10/17 at 22:20; Status DC Sodium Chloride 1,000 ml @ 1,000 mls/hr Q1H IV Last administered on 12:53; Start 05/10/17 at 12:44; Stop 05/10/17 at 13:43; Status DC Ondansetron HCl (Zofran) 4 mg 1X ONCE IV Last administered on 05/10/17 12:53 ; Start 05/10/17 at 12:45; Stop 05/10/17 at 12:49; Status DC Ondansetron HCl (Zofran) 4 mg STK-MED ONCE .ROUTE ; Start 05/10/17 at 12:50; Stop 05/10/17 at 12:51; Status DC Fentanyl Citrate (Fentanyl 2ml Vial) 100 mcg STK-MED ONCE .ROUTE ; Start at 12:50; Stop 05/10/17 at 12:51; Status DC Iohexol (Omnipaque 300 Mg/ml) 75 ml 1X ONCE IV Last administered on 13:27; Start 05/10/17 at 13:00; Stop 05/10/17 at 13:01; Status DC Info (Do NOT chart on this entry -- for MONITORING) 1 each PRN DAILY PRN MC SEE COMMENTS; Start 05/10/17 at 13:00; Stop 05/12/17 at 12:59 Piperacillin Sod/ Tazobactam Sod (Zosyn Per Pharmacy) 1 each PRN DAILY PRN MC SEE COMMENTS; Start 05/10/17 at 15:00 Piperacillin Sod/ Tazobactam Sod (Zosyn) 3.375 gm ONCE ONCE IVP Last administered on 05/10/17 15:10; Start 05/10/17 at 15:00; Stop 05/10/17 at 15 :01; Status DC Piperacillin Sod/ Tazobactam Sod (Zosyn) 3.375 gm Q6HRS IVP Last administered on 05/11/17 05:50; Start 05/10/17 at 22:30 Ondansetron HCl (Zofran) 4 mg PRN Q8HRS PRN IV NAUSEA/VOMITING; Start at 16:45; Stop 05/11/17 at 16:44 Morphine Sulfate 4 mg PRN Q2HR PRN IV PAIN Last administered on 05/10/17 22: 09; Start 05/10/17 at 16:45; Stop 05/11/17 at 16:44 Acetaminophen (Tylenol) 650 mg PRN Q4HRS PRN PO FEVER; Start 05/10/17 at 16:45 ; Stop 05/11/17 at 16:44 Lactobacillus Rhamnosus (Culturelle) 1 cap BID PO Last administered on 09:58; Start 05/10/17 at 21:00 Oxycodone/ Acetaminophen (Percocet 5/325) 1 tab PRN Q4HRS PRN PO MODERATED PAIN Last administered on 05/11/17 10:07; Start 05/10/17 at 18:30 Mineral Oil (Fleet Mineral Oil) 133 ml 1X ONCE NM Last administered on 20:47; Start 05/10/17 at 19:00; Stop 05/10/17 at 19:01; Status DC Sodium Cl/Sod Bicarb/Potass Cl/ PEG (Golytely) 4,000 ml 1X ONCE PO Last administered on 12/11/17at 20:47; Start 05/10/17 at 19:00; Stop 05/10/17 at 19 :01; Status DC Fentanyl Citrate (Fentanyl 2ml Vial) 25 mcg PRN Q2HR PRN IV SEVERE PAIN Last administered on 05/11/17 05:52; Start 05/10/17 at 22:30 Ondansetron HCl (Zofran) 4 mg PRN Q6HRS PRN IV NAUSEA/VOMITING; Start at 10:15 Ondansetron HCl (Zofran Odt) 4 mg PRN Q6HRS PRN PO NAUSEA/VOMITING; Start 05/16 at 10:15 Acetaminophen (Tylenol) 500 mg PRN Q6HRS PRN PO MILD PAIN / TEMP; Start at 10:15 Potassium Chloride/Sodium Chloride 1,000 ml @ 75 mls/hr 1X ONCE IV ; Start at 10:15; Stop 05/11/17 at 23:34 Oxycodone/ Acetaminophen (Percocet 5/325) 1 tab PRN Q4HRS PRN PO PAIN; Start 05/11/17 at 11:30 Oxycodone/ Acetaminophen (Percocet 10/325) 1 tab PRN Q4HRS PRN PO pain; Start 05/11/17 at 11:30 Docusate Sodium (Colace) 100 mg BID PO ; Start 05/11/17 at 21:00 Polyethylene Glycol (miraLAX PACKET) 17 gm DAILY PO ; Start 05/11/17 at 12:00 Magnesium Hydroxide (Milk Of Magnesia) 2,400 mg PRN DAILY PRN PO CONSTIPATION; Start 05/11/17 at 11:30 Active Scripts Active Oxycodone-Acetaminophen 5-325 (Oxycodone Hcl/Acetaminophen) 1 Each Tablet 1 Tab PO PRN Q4HRS PRN Culturelle (Lactobacillus Rhamnosus Gg) 1 Each Cap.sprink 1 Cap PO BID Amox Tr-K Clv 875-125 Mg Tab (Amoxicillin/Potassium Clav) 1 Each Tablet 1 Tab PO BID Allergies Allergies: Coded Allergies: tetanus and diphtheria toxoids (Verified Allergy, Intermediate, 05/06/17) ROS General: No: Chills, Other (fevers) PSYCHOLOGICAL ROS: No: Anxiety, Depression Eyes: No Blurry vision, No Double vision HEENT: No: Heacaches, Sore Throat Hematological and Lymphatic: No: Bleeding Problems, Blood Clots Respiratory: No: Cough, Shortness of breath Cardiovascular: No Chest Pain, No Palpitations Gastrointestinal: Yes Other (see hpi) Genitourinary: No Dysuria, No Hematuria Musculoskeletal: No Joint Pain, No Muscle Pain Neurological: No Impaired Coord/balance, No Numbness/Tingling Skin: No Pruritus, No Rash Physical Exam General: Alert, Oriented X3, Cooperative, No acute distress HEENT: PERRLA, Mucous membr. moist/pink Lungs: Clear to auscultation, Normal air movement Abdomen: Soft, Other (lap sites healing, mild tenderness RUQ) Skin: No rashes, No breakdown Neuro: Normal gait, Normal speech Psych/Mental Status: Mental status NL, Mood NL MUSCULOSKELETAL: No deformity, No swelling Vitals VITALS Vital Signs Date Time Temp Pulse Resp B/P (MAP) Pulse Ox O2 Delivery O2 Flow Rate FiO2 05/11/17 10:07 12 94 Room Air 05/11/17 07:00 98.1 85 167/93 (117) 98.1 Labs Labs Laboratory Tests Test 05/10/17 11:45 05/10/17 12:20 05/10/17 12:30 05/11/17 03:35 White Blood Count 12.0 x10^3/uL (4.0-11.0) 9.8 x10^3/uL (4.0-11.0) Red Blood Count 3.10 x10^6/uL (3.50-5.40) 2.84 x10^6/uL (3.50-5.40) Hemoglobin 8.9 g/dL (12.0-15.5) 8.3 g/dL (12.0-15.5) Hematocrit 26.8 % (36.0-47.0) 24.6 % (36.0-47.0) Mean Corpuscular Volume 86 fL (79-100) 87 fL (79-100) Mean Corpuscular Hemoglobin 29 pg (25-35) 29 pg (25-35) Mean Corpuscular Hemoglobin Concent 33 g/dL (31-37) 34 g/dL (31-37) Red Cell Distribution Width 15.6 % (11.5-14.5) 15.6 % (11.5-14.5) Platelet Count 319 x10^3/uL (140-400) 300 x10^3/uL (140-400) Neutrophils (%) (Auto) 78 % (31-73) 78 % (31-73) Lymphocytes (%) (Auto) 13 % (24-48) 12 % (24-48) Monocytes (%) (Auto) 8 % (0-9) 9 % (0-9) Eosinophils (%) (Auto) 1 % (0-3) 1 % (0-3) Basophils (%) (Auto) 0 % (0-3) 1 % (0-3) Neutrophils # (Auto) 9.3 x10^3uL (1.8-7.7) 7.6 x10^3uL (1.8-7.7) Lymphocytes # (Auto) 1.5 x10^3/uL (1.0-4.8) 1.1 x10^3/uL (1.0-4.8) Monocytes # (Auto) 1.0 x10^3/uL (0.0-1.1) 0.9 x10^3/uL (0.0-1.1) Eosinophils # (Auto) 0.1 x10^3/uL (0.0-0.7) 0.1 x10^3/uL (0.0-0.7) Basophils # (Auto) 0.0 x10^3/uL (0.0-0.2) 0.0 x10^3/uL (0.0-0.2) Sodium Level 137 mmol/L (136-145) 138 mmol/L (136-145) Potassium Level 3.5 mmol/L (3.5-5.1) 3.6 mmol/L (3.5-5.1) Chloride Level 99 mmol/L (98-107) 101 mmol/L (98-107) Carbon Dioxide Level 29 mmol/L (21-32) 30 mmol/L (21-32) Anion Gap 9 (6-14) 7 (6-14) Blood Urea Nitrogen 11 mg/dL (7-20) 10 mg/dL (7-20) Creatinine 0.6 mg/dL (0.6-1.0) 0.6 mg/dL (0.6-1.0) Estimated GFR (Cockcroft-Gault) 104.2 104.2 BUN/Creatinine Ratio 18 (6-20) Glucose Level 109 mg/dL (70-99) 107 mg/dL (70-99) Calcium Level 8.4 mg/dL (8.5-10.1) 8.5 mg/dL (8.5-10.1) Total Bilirubin 1.2 mg/dL (0.2-1.0) 1.8 mg/dL (0.2-1.0) Aspartate Amino Transf (AST/SGOT) 90 U/L (15-37) 196 U/L (15-37) Alanine Aminotransferase (ALT/SGPT) 65 U/L (14-59) 120 U/L (14-59) Alkaline Phosphatase 157 U/L (46-116) 290 U/L (46-116) Total Protein 6.9 g/dL (6.4-8.2) 5.8 g/dL (6.4-8.2) Albumin 2.3 g/dL (3.4-5.0) 2.2 g/dL (3.4-5.0) Albumin/Globulin Ratio 0.5 (1.0-1.7) Lipase 98 U/L (73-393) Lactic Acid Level 0.9 mmol/L (0.4-2.0) Urine Collection Type Void Urine Color Carey Urine Clarity Clear Urine pH 7.5 Urine Specific [place] 1.015 Urine Protein Negative mg/dL (NEG-TRACE) Urine Glucose (UA) Negative mg/dL (NEG) Urine Ketones (Stick) Negative mg/dL (NEG) Urine Blood Negative (NEG) Urine Nitrite Negative (NEG) Urine Bilirubin Negative (NEG) Urine Urobilinogen Dipstick 1.0 mg/dL (0.2 mg/dL) Urine Leukocyte Esterase Negative (NEG) Urine RBC Rare /HPF (0-2) Urine WBC Rare /HPF (0-4) Urine Squamous Epithelial Cells Few /LPF Urine Bacteria Few /HPF (0-FEW) Direct Bilirubin 1.3 mg/dL (0.0-0.2) Laboratory Tests Test 05/10/17 12:20 05/10/17 12:30 05/11/17 03:35 Lactic Acid Level 0.9 mmol/L (0.4-2.0) Urine Collection Type Void Urine Color Carey Urine Clarity Clear Urine pH 7.5 Urine Specific [place] 1.015 Urine Protein Negative mg/dL (NEG-TRACE) Urine Glucose (UA) Negative mg/dL (NEG) Urine Ketones (Stick) Negative mg/dL (NEG) Urine Blood Negative (NEG) Urine Nitrite Negative (NEG) Urine Bilirubin Negative (NEG) Urine Urobilinogen Dipstick 1.0 mg/dL (0.2 mg/dL) Urine Leukocyte Esterase Negative (NEG) Urine RBC Rare /HPF (0-2) Urine WBC Rare /HPF (0-4) Urine Squamous Epithelial Cells Few /LPF Urine Bacteria Few /HPF (0-FEW) White Blood Count 9.8 x10^3/uL (4.0-11.0) Red Blood Count 2.84 x10^6/uL (3.50-5.40) Hemoglobin 8.3 g/dL (12.0-15.5) Hematocrit 24.6 % (36.0-47.0) Mean Corpuscular Volume 87 fL (79-100) Mean Corpuscular Hemoglobin 29 pg (25-35) Mean Corpuscular Hemoglobin Concent 34 g/dL (31-37) Red Cell Distribution Width 15.6 % (11.5-14.5) Platelet Count 300 x10^3/uL (140-400) Neutrophils (%) (Auto) 78 % (31-73) Lymphocytes (%) (Auto) 12 % (24-48) Monocytes (%) (Auto) 9 % (0-9) Eosinophils (%) (Auto) 1 % (0-3) Basophils (%) (Auto) 1 % (0-3) Neutrophils # (Auto) 7.6 x10^3uL (1.8-7.7) Lymphocytes # (Auto) 1.1 x10^3/uL (1.0-4.8) Monocytes # (Auto) 0.9 x10^3/uL (0.0-1.1) Eosinophils # (Auto) 0.1 x10^3/uL (0.0-0.7) Basophils # (Auto) 0.0 x10^3/uL (0.0-0.2) Sodium Level 138 mmol/L (136-145) Potassium Level 3.6 mmol/L (3.5-5.1) Chloride Level 101 mmol/L (98-107) Carbon Dioxide Level 30 mmol/L (21-32) Anion Gap 7 (6-14) Blood Urea Nitrogen 10 mg/dL (7-20) Creatinine 0.6 mg/dL (0.6-1.0) Estimated GFR (Cockcroft-Gault) 104.2 Glucose Level 107 mg/dL (70-99) Calcium Level 8.5 mg/dL (8.5-10.1) Total Bilirubin 1.8 mg/dL (0.2-1.0) Direct Bilirubin 1.3 mg/dL (0.0-0.2) Aspartate Amino Transf (AST/SGOT) 196 U/L (15-37) Alanine Aminotransferase (ALT/SGPT) 120 U/L (14-59) Alkaline Phosphatase 290 U/L (46-116) Total Protein 5.8 g/dL (6.4-8.2) Albumin 2.2 g/dL (3.4-5.0) Assessment/Plan Assessment/Plan s/p lap florence constipation, improved elevated LFTS, HIDA negative for leak--will ask for GI consult and will repeat LFTS in KIT TORRES MD 05/11/17 1228: CONSULT Allergies Allergies: Coded Allergies: tetanus and diphtheria toxoids (Verified Allergy, Intermediate, 05/06/17) Assessment/Plan Assessment/Plan Patient seen and examined she is feeling a bit better after having a BM. Abd soft, Mildly TTP RUQ elevated LFT's and HIDA normal without leak. Likely related to Marc C and biliary infection Continue abx recheck lab in ROD Ingram APRN May 11, 2017 12:02 KIT TORRES MD May 11, 2017 12:28
--- NOTE | 2017-05-11 12:48 | PDOC2 ---
ULISES LUBIN 05/11/17 1248: GI CONSULT Reason For Consult: S/p lap florence, elevated LFTs HPI: HPI: 56 y/o female s/p lap florence w/ Dr. Multani on 05/05/17, path w/ cholelithiasis and cholecystitis, no IOC performed. Lifelong h/o constipation occasionally treated w/ OTC pills, not unusual for a week or more to pass between stools. Was taking pain medication after surgery, constipation was worse than normal. Yesterday began having RLQ pain w/ nausea and dizziness, came to ER and was admitted. She received an enema and drank some GoLytely last night - finally stooled this morning and feels better (w/ resolution of pain). Has Miralax and Colace ordered QD w/ MoM PRN. Labs significant for WBC 12 (now 9.8 w/ atbx), Hgb 8.9 (now 8.3 - for comparison, was as low as 7.7 last admission) w/ elevated RDW, normal plt, bili 1.2 (now 1.8 - highest 1.6 last admission), AST 90 (now 196), ALT 65 (now 120), Alk Phos 157 (now 290). CT A/P w/ minimal right pleural effusion, mild fatty liver, 3x7 cm fluid collection in gallbladder fossa (possible hematoma), fluid extending along the inferior surface of the liver w/ peripheral enhancement, LUQ ascites w/ hyperdense spleen , probable duodenal diverticulum, probable reactive retroperitoneal lymph nodes , and hemoperitoneum about the spleen into left paracolic gutter into pelvis. HIDA unrevealing. H/o "hepatitis unknown" diagnosed in 1988; h/o IVDU, friends and family members have had Hep C. She felt sick around the time of Hepatitis diagnosis but took milk thistle and dandelion extract for awhile and felt better. Hasn't really gone to the doctor much since then. 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 No vomiting. Decreased appetite since surgery. Has had increased fatigue w/ 70 pound weight gain over the past 5-6 years since menopause. Long h/o anemia, took iron a couple times. No hematemesis, hematochezia, or melena. No NSAID use. No previous EGD or colonoscopy. No pancreas history. PMH: PMH: Hepatitis unknown, constipation, x 3, cholecystectomy FH: Family History: Cancer (mother - esophageal, father - colon), DM, Other ( friends/family w/ Hep C) Social History: Smoke: <1 pack per day ALCOHOL: rare Drugs: Other (h/o IVDU) ROS: GEN: +fatigue HEENT: Denies blurred vision, sore throat CV: Denies chest pain RESP: Denies shortness of air, cough GI: Per HPI : Denies hematuria, dysuria ENDO: +weight gain NEURO: Denies confusion, dizziness MSK: Denies weakness, joint pain/swelling SKIN: Denies jaundice, pruritus Vitals: Vitals: Vital Signs Date Time Temp Pulse Resp B/P (MAP) Pulse Ox O2 Delivery O2 Flow Rate FiO2 05/11/17 10:07 12 94 Room Air 05/11/17 07:00 98.1 85 167/93 (117) 98.1 Labs: Labs: Laboratory Tests Test 05/10/17 12:30 05/11/17 03:35 Urine Collection Type Void Urine Color Carey Urine Clarity Clear Urine pH 7.5 Urine Specific [place] 1.015 Urine Protein Negative mg/dL (NEG-TRACE) Urine Glucose (UA) Negative mg/dL (NEG) Urine Ketones (Stick) Negative mg/dL (NEG) Urine Blood Negative (NEG) Urine Nitrite Negative (NEG) Urine Bilirubin Negative (NEG) Urine Urobilinogen Dipstick 1.0 mg/dL (0.2 mg/dL) Urine Leukocyte Esterase Negative (NEG) Urine RBC Rare /HPF (0-2) Urine WBC Rare /HPF (0-4) Urine Squamous Epithelial Cells Few /LPF Urine Bacteria Few /HPF (0-FEW) White Blood Count 9.8 x10^3/uL (4.0-11.0) Red Blood Count 2.84 x10^6/uL (3.50-5.40) Hemoglobin 8.3 g/dL (12.0-15.5) Hematocrit 24.6 % (36.0-47.0) Mean Corpuscular Volume 87 fL (79-100) Mean Corpuscular Hemoglobin 29 pg (25-35) Mean Corpuscular Hemoglobin Concent 34 g/dL (31-37) Red Cell Distribution Width 15.6 % (11.5-14.5) Platelet Count 300 x10^3/uL (140-400) Neutrophils (%) (Auto) 78 % (31-73) Lymphocytes (%) (Auto) 12 % (24-48) Monocytes (%) (Auto) 9 % (0-9) Eosinophils (%) (Auto) 1 % (0-3) Basophils (%) (Auto) 1 % (0-3) Neutrophils # (Auto) 7.6 x10^3uL (1.8-7.7) Lymphocytes # (Auto) 1.1 x10^3/uL (1.0-4.8) Monocytes # (Auto) 0.9 x10^3/uL (0.0-1.1) Eosinophils # (Auto) 0.1 x10^3/uL (0.0-0.7) Basophils # (Auto) 0.0 x10^3/uL (0.0-0.2) Sodium Level 138 mmol/L (136-145) Potassium Level 3.6 mmol/L (3.5-5.1) Chloride Level 101 mmol/L (98-107) Carbon Dioxide Level 30 mmol/L (21-32) Anion Gap 7 (6-14) Blood Urea Nitrogen 10 mg/dL (7-20) Creatinine 0.6 mg/dL (0.6-1.0) Estimated GFR (Cockcroft-Gault) 104.2 Glucose Level 107 mg/dL (70-99) Calcium Level 8.5 mg/dL (8.5-10.1) Total Bilirubin 1.8 mg/dL (0.2-1.0) Direct Bilirubin 1.3 mg/dL (0.0-0.2) Aspartate Amino Transf (AST/SGOT) 196 U/L (15-37) Alanine Aminotransferase (ALT/SGPT) 120 U/L (14-59) Alkaline Phosphatase 290 U/L (46-116) Total Protein 5.8 g/dL (6.4-8.2) Albumin 2.2 g/dL (3.4-5.0) Allergies: Coded Allergies: tetanus and diphtheria toxoids (Verified Allergy, Intermediate, 05/06/17) Medications: Current Medications Medications (Trade) Dose Ordered Sig/[place] Route PRN Reason Start Time Stop Time Status Last Admin Dose Admin Fentanyl Citrate (Fentanyl 2ml Vial) 50 mcg PRN Q15MIN PRN IV PAIN GREATER THAN 3/10 05/10/17 12:45 05/10/17 22:20 DC 05/10/17 15:23 Sodium Chloride 1,000 ml @ 1,000 mls/hr Q1H IV 05/10/17 12:44 05/10/17 13:43 DC 05/10/17 12:53 Ondansetron HCl (Zofran) 4 mg 1X ONCE IV 05/10/17 12:45 05/10/17 12:49 DC 05/10/17 12:53 Iohexol (Omnipaque 300 Mg/ml) 75 ml 1X ONCE IV 05/10/17 13:00 05/10/17 13:01 DC 05/10/17 13:27 Piperacillin Sod/ Tazobactam Sod (Zosyn) 3.375 gm ONCE ONCE IVP 05/10/17 15:00 05/10/17 15:01 DC 05/10/17 15:10 Piperacillin Sod/ Tazobactam Sod (Zosyn) 3.375 gm Q6HRS IVP 05/10/17 22:30 05/11/17 05:50 Morphine Sulfate 4 mg PRN Q2HR PRN IV PAIN 05/10/17 16:45 05/11/17 16:44 05/10/17 22:09 Lactobacillus Rhamnosus (Culturelle) 1 cap BID PO 05/10/17 21:00 05/11/17 09:58 Oxycodone/ Acetaminophen (Percocet 5/325) 1 tab PRN Q4HRS PRN PO MODERATED PAIN 05/10/17 18:30 05/11/17 10:07 Mineral Oil (Fleet Mineral Oil) 133 ml 1X ONCE AL 05/10/17 19:00 05/10/17 19:01 DC 05/10/17 20:47 Sodium Cl/Sod Bicarb/Potass Cl/ PEG (Golytely) 4,000 ml 1X ONCE PO 05/10/17 19:00 05/10/17 19:01 DC 05/10/17 20:47 Fentanyl Citrate (Fentanyl 2ml Vial) 25 mcg PRN Q2HR PRN IV SEVERE PAIN 05/10/17 22:30 05/11/17 05:52 Imaging: Imaging: CT A/P 05/10/17 Findings: There is atelectasis in the right lung base. There is a minimal right pleural effusion. The heart is not enlarged. There is mild fatty infiltration of the liver. Patient has underwent cholecystectomy. Fluid collection in the gallbladder fossa could represent hematoma measuring 7 x 3 cm in size. There is also fluid extending along the inferior surface of the liver. This perihepatic fluid has some peripheral enhancement. Please see axial image 42 and coronal images 38-44. This collection of fluid is not large enough to form a pigtail drain within it. The pancreas and the adrenals are unremarkable. There is ascites noted in the left upper quadrant adjacent to the spleen which is hyperdense measuring 60 Hounsfield units. The kidneys are symmetrically perfused. There is minimal atheromatous disease in the abdominal aorta. Retroperitoneal lymph nodes may be reactive. No adenopathy is apparent. There is probably a duodenal diverticulum. There is no dilated small bowel loop or air-fluid level. There is no free air. Hemoperitoneum about the spleen extends into the left paracolic gutter. Hemoperitoneum also extends into the pelvis. Bladder is unremarkable. Calcified phleboliths are noted. There is no adnexal mass. There are minimal degenerative changes in the spine. Impression: 1. Fluid collection noted along the liver with some peripheral enhancement. This could represent abscess. Bile leak/biloma is a consideration. Hepatobiliary scintigraphy can be considered. 2. Small amount of hemoperitoneum noted in the left upper quadrant and extending down into the left paracolic gutter and into the pelvis. 3. Minimal right pleural effusion. HIDA 05/11/17 Following IV injection of 5.5 mCi of technetium 99m Choletec there was prompt uptake of the radionuclide from the blood stream by the liver. The gallbladder is surgically absent. Activity is present in the common bile duct and small bowel at 12 minutes. At 22 minutes the patient refused to continue with the study. No bile leak was identified on this abbreviated exam. IMPRESSION: 1. Status post cholecystectomy. 2. No significant abnormality is detected. Abd US 05/04/17 The gallbladder is at the upper limits of normal in size. There are echogenic foci in the gallbladder neck region with posterior acoustic shadowing. The appearance is that of cholelithiasis. The gallbladder wall appears mildly thickened. There is a suggestion of mild pericholecystic edema on some views. There was reportedly tenderness to transducer pressure over the gallbladder. The common hepatic duct is of normal caliber. No hepatic mass is evident. The pancreatic body is unremarkable. Other portions of the pancreas were obscured by overlying bowel. The mid and distal abdominal aorta and inferior vena cava are also obscured by overlying bowel. The spleen is of normal size. No renal abnormality is detected. IMPRESSION: 1. Cholelithiasis. 2. Positive sonographic Bright's sign with probable mild pericholecystic edema. A radionuclide hepatobiliary scan may be useful for further evaluation of the possibility of acute cholecystitis, if clinically indicated. Echocardiogram 05/04/17 <Conclusion> The left ventricular systolic function is normal and the ejection fraction is within normal range. EF 55% There is normal LV segmental wall motion. PE: GEN: NAD, overweight, up to chair HEENT: Atraumatic, PERRL LUNGS: CTAB HEART: RRR ABD: BS+, healing lap incisions, soft, not particularly tender EXTREMITY: No edema SKIN: No rashes, no jaundice NEURO/PSYCH: A & O 3 A/P: A/P: Chronic constipation, acute RLQ pain - improved S/p lap florence 05/05 (cholelithiasis, cholecystitis) -CT w/ fluid collection in GB fossa and hemoperitoneum, HIDA ok (although stopped study early) H/o Hepatitis and IVDU -diagnosed in 1988 as "unknown," suspects Hep C -plt WNL -CT also w/ LUQ ascites, fatty liver, minimal right pleural effusion Elevated LFTs Anemia GERD - occasional -takes Tums, no previous EGD - esophageal cancer CRC screen, colon cancer -no previous colonoscopy Fatigue, weight gain -defer to primary -- D/w Dr. Multani. Plans to try clears - RN called and said she was eating regular food her brought. Check acute Hepatitis panel. Would continue constipation treatment, especially since a lifelong problem. Consider Relistor or Movantik if continues to need pain control. Will review additional recs w/ Dr. Romero (?MRCP). IKER ROMERO MD 05/11/17 1526: GI CONSULT Allergies: Coded Allergies: tetanus and diphtheria toxoids (Verified Allergy, Intermediate, 05/06/17) ULISES LUBIN May 11, 2017 12:48 IKER ROMERO MD May 11, 2017 15:26
[2017-05-11] MEDS: POLYETHYLENE GLYCOL 3350 17 GM PACKET. PO SCH (13:05)
[2017-05-11 15:00] VITALS: BP 135/77
[2017-05-11 19:00] VITALS: BP 158/93
[2017-05-11] MEDS: oxyCODONE/APAP 10/325 1 TAB TABLET PO PRN (19:46)
[2017-05-11] MEDS: DOCUSATE SODIUM 100 MG CAPSULE. PO SCH (20:52)
[2017-05-11 23:00] VITALS: BP 106/53
[2017-05-12] MEDS: PIPERACILLIN/TAZO IV Push 3.375 GM VIAL. IVP SCH ×5 (00:21→18:00)
[2017-05-12 03:00] VITALS: BP 119/70
[2017-05-12 06:05] LABS: ALBUMIN 2.1 g/dL (3.4-5.0); DIRECT BILIRUBIN 0.5 mg/dL (0.0-0.2); TOTAL BILIRUBIN 1.2 mg/dL (0.2-1.0); TOTAL PROTEIN 6.3 g/dL (6.4-8.2)
[2017-05-12 07:15] VITALS: BP 116/65
[2017-05-12] MEDS: fentaNYL PF VIAL 100 MCG/2 ML VIAL IV PRN (07:42)
[2017-05-12 09:20] LABS: HEP A IGM ABDY Negative (Negative)
[2017-05-12 11:03] VITALS: BP 133/76
--- NOTE | 2017-05-12 11:20 | PDOC ---
Subjective: Subjective: Per - feeling better today. Objective: Objective: Out of room. Reviewed extensive nursing notes, d/w RN earlier. Vital Signs: Vital Signs Date Time Temp Pulse Resp B/P (MAP) Pulse Ox O2 Delivery O2 Flow Rate FiO2 05/12/17 11:03 97.9 79 18 133/76 (95) 96 Room Air 97.9 Labs: Laboratory Tests Test 05/11/17 14:25 05/12/17 03:50 Hepatitis A IgM Antibody Negative Hepatitis B Surface Antigen Negative Hepatitis B Core IgM Antibody Negative Hepatitis C Antibody >11.0 s/co ratio Total Bilirubin 1.2 mg/dL Direct Bilirubin 0.5 mg/dL Aspartate Amino Transf (AST/SGOT) 58 U/L Alanine Aminotransferase (ALT/SGPT) 71 U/L Alkaline Phosphatase 215 U/L Total Protein 6.3 g/dL Albumin 2.1 g/dL Imaging: MRCP PENDING PE: no exam box of Go Chicken go at bedside A/P: S/p lap florence 05/05 (cholelithiasis, cholecystitis) -CT w/ fluid collection in GB fossa and hemoperitoneum, HIDA ok Elevated LFTs - improved Hep C -fatty liver on CT Normocytic anemia -no previous EGD or colonoscopy, FH esophageal and colon cancer Lifelong constipation - improved -- Await MRCP. Hep C viral load/genotype as outpt. Outpt EGD and colonoscopy. Continue constipation treatment. ULISES LUBIN May 12, 2017 11:20 IKER MELCHOR MD May 12, 2017 16:56
--- NOTE | 2017-05-12 11:25 | PDOC ---
PROGRESS NOTES Chief Complaint Chief Complaint Abdominal pain, status post cholecystectomy 05/05 by our general surgery team Obstipation Obesity BMI 42 History of Present Illness History of Present Illness Abdominal pain continues patient is nothing by mouth. Patient is plan for MRCP by GI. She has food at bedside , she is just smelling the food. She is so hungry. I did advise patient to hold nothing by mouth. Plan: MRCP later recheck LFTs tomorrow Vitals Vitals Vital Signs Date Time Temp Pulse Resp B/P (MAP) Pulse Ox O2 Delivery O2 Flow Rate FiO2 05/12/17 11:03 97.9 79 18 133/76 (95) 96 Room Air 97.9 Physical Exam General: Alert, Oriented X3, Cooperative, No acute distress Heart: Regular rate, Normal S1, Normal S2 Lungs: Clear Abdomen: Soft, Other (lap sites healing, mild tenderness RUQ) Extremities: No clubbing, No cyanosis Skin: No rashes, No breakdown Labs LABS Laboratory Tests Test 05/11/17 14:25 05/12/17 03:50 Hepatitis A IgM Antibody Negative (Negative) Hepatitis B Surface Antigen Negative (Negative) Hepatitis B Core IgM Antibody Negative (Negative) Hepatitis C Antibody >11.0 s/co ratio Total Bilirubin 1.2 mg/dL (0.2-1.0) Direct Bilirubin 0.5 mg/dL (0.0-0.2) Aspartate Amino Transf (AST/SGOT) 58 U/L (15-37) Alanine Aminotransferase (ALT/SGPT) 71 U/L (14-59) Alkaline Phosphatase 215 U/L (46-116) Total Protein 6.3 g/dL (6.4-8.2) Albumin 2.1 g/dL (3.4-5.0) Review of Systems Review of Systems abdominal pain, hungry, the rest of ROS 14 point systems reviewed negative Comment Review of Relevant I have reviewed the following items jasson (where applicable) has been applied. Labs Laboratory Tests Test 05/10/17 11:45 05/10/17 12:20 05/10/17 12:30 05/11/17 03:35 White Blood Count 12.0 x10^3/uL (4.0-11.0) 9.8 x10^3/uL (4.0-11.0) Red Blood Count 3.10 x10^6/uL (3.50-5.40) 2.84 x10^6/uL (3.50-5.40) Hemoglobin 8.9 g/dL (12.0-15.5) 8.3 g/dL (12.0-15.5) Hematocrit 26.8 % (36.0-47.0) 24.6 % (36.0-47.0) Mean Corpuscular Volume 86 fL (79-100) 87 fL (79-100) Mean Corpuscular Hemoglobin 29 pg (25-35) 29 pg (25-35) Mean Corpuscular Hemoglobin Concent 33 g/dL (31-37) 34 g/dL (31-37) Red Cell Distribution Width 15.6 % (11.5-14.5) 15.6 % (11.5-14.5) Platelet Count 319 x10^3/uL (140-400) 300 x10^3/uL (140-400) Neutrophils (%) (Auto) 78 % (31-73) 78 % (31-73) Lymphocytes (%) (Auto) 13 % (24-48) 12 % (24-48) Monocytes (%) (Auto) 8 % (0-9) 9 % (0-9) Eosinophils (%) (Auto) 1 % (0-3) 1 % (0-3) Basophils (%) (Auto) 0 % (0-3) 1 % (0-3) Neutrophils # (Auto) 9.3 x10^3uL (1.8-7.7) 7.6 x10^3uL (1.8-7.7) Lymphocytes # (Auto) 1.5 x10^3/uL (1.0-4.8) 1.1 x10^3/uL (1.0-4.8) Monocytes # (Auto) 1.0 x10^3/uL (0.0-1.1) 0.9 x10^3/uL (0.0-1.1) Eosinophils # (Auto) 0.1 x10^3/uL (0.0-0.7) 0.1 x10^3/uL (0.0-0.7) Basophils # (Auto) 0.0 x10^3/uL (0.0-0.2) 0.0 x10^3/uL (0.0-0.2) Sodium Level 137 mmol/L (136-145) 138 mmol/L (136-145) Potassium Level 3.5 mmol/L (3.5-5.1) 3.6 mmol/L (3.5-5.1) Chloride Level 99 mmol/L (98-107) 101 mmol/L (98-107) Carbon Dioxide Level 29 mmol/L (21-32) 30 mmol/L (21-32) Anion Gap 9 (6-14) 7 (6-14) Blood Urea Nitrogen 11 mg/dL (7-20) 10 mg/dL (7-20) Creatinine 0.6 mg/dL (0.6-1.0) 0.6 mg/dL (0.6-1.0) Estimated GFR (Cockcroft-Gault) 104.2 104.2 BUN/Creatinine Ratio 18 (6-20) Glucose Level 109 mg/dL (70-99) 107 mg/dL (70-99) Calcium Level 8.4 mg/dL (8.5-10.1) 8.5 mg/dL (8.5-10.1) Total Bilirubin 1.2 mg/dL (0.2-1.0) 1.8 mg/dL (0.2-1.0) Aspartate Amino Transf (AST/SGOT) 90 U/L (15-37) 196 U/L (15-37) Alanine Aminotransferase (ALT/SGPT) 65 U/L (14-59) 120 U/L (14-59) Alkaline Phosphatase 157 U/L (46-116) 290 U/L (46-116) Total Protein 6.9 g/dL (6.4-8.2) 5.8 g/dL (6.4-8.2) Albumin 2.3 g/dL (3.4-5.0) 2.2 g/dL (3.4-5.0) Albumin/Globulin Ratio 0.5 (1.0-1.7) Lipase 98 U/L (73-393) Lactic Acid Level 0.9 mmol/L (0.4-2.0) Urine Collection Type Void Urine Color Carey Urine Clarity Clear Urine pH 7.5 Urine Specific [place] 1.015 Urine Protein Negative mg/dL (NEG-TRACE) Urine Glucose (UA) Negative mg/dL (NEG) Urine Ketones (Stick) Negative mg/dL (NEG) Urine Blood Negative (NEG) Urine Nitrite Negative (NEG) Urine Bilirubin Negative (NEG) Urine Urobilinogen Dipstick 1.0 mg/dL (0.2 mg/dL) Urine Leukocyte Esterase Negative (NEG) Urine RBC Rare /HPF (0-2) Urine WBC Rare /HPF (0-4) Urine Squamous Epithelial Cells Few /LPF Urine Bacteria Few /HPF (0-FEW) Direct Bilirubin 1.3 mg/dL (0.0-0.2) Test 05/11/17 14:25 05/12/17 03:50 Hepatitis A IgM Antibody Negative (Negative) Hepatitis B Surface Antigen Negative (Negative) Hepatitis B Core IgM Antibody Negative (Negative) Hepatitis C Antibody >11.0 s/co ratio Total Bilirubin 1.2 mg/dL (0.2-1.0) Direct Bilirubin 0.5 mg/dL (0.0-0.2) Aspartate Amino Transf (AST/SGOT) 58 U/L (15-37) Alanine Aminotransferase (ALT/SGPT) 71 U/L (14-59) Alkaline Phosphatase 215 U/L (46-116) Total Protein 6.3 g/dL (6.4-8.2) Albumin 2.1 g/dL (3.4-5.0) Laboratory Tests Test 05/11/17 14:25 05/12/17 03:50 Hepatitis A IgM Antibody Negative (Negative) Hepatitis B Surface Antigen Negative (Negative) Hepatitis B Core IgM Antibody Negative (Negative) Hepatitis C Antibody >11.0 s/co ratio Total Bilirubin 1.2 mg/dL (0.2-1.0) Direct Bilirubin 0.5 mg/dL (0.0-0.2) Aspartate Amino Transf (AST/SGOT) 58 U/L (15-37) Alanine Aminotransferase (ALT/SGPT) 71 U/L (14-59) Alkaline Phosphatase 215 U/L (46-116) Total Protein 6.3 g/dL (6.4-8.2) Albumin 2.1 g/dL (3.4-5.0) Medications Current Medications Fentanyl Citrate (Fentanyl 2ml Vial) 50 mcg PRN Q15MIN PRN IV PAIN GREATER THAN 3/10 Last administered on 05/10/17t 15:23; Start 05/10/17 at 12:45; Stop 05/10/17 at 22:20; Status DC Sodium Chloride 1,000 ml @ 1,000 mls/hr Q1H IV Last administered on 12:53; Start 05/10/17 at 12:44; Stop 05/10/17 at 13:43; Status DC Ondansetron HCl (Zofran) 4 mg 1X ONCE IV Last administered on 05/10/17 12:53 ; Start 05/10/17 at 12:45; Stop 05/10/17 at 12:49; Status DC Ondansetron HCl (Zofran) 4 mg STK-MED ONCE .ROUTE ; Start 05/10/17 at 12:50; Stop 05/10/17 at 12:51; Status DC Fentanyl Citrate (Fentanyl 2ml Vial) 100 mcg STK-MED ONCE .ROUTE ; Start at 12:50; Stop 05/10/17 at 12:51; Status DC Iohexol (Omnipaque 300 Mg/ml) 75 ml 1X ONCE IV Last administered on 13:27; Start 05/10/17 at 13:00; Stop 05/10/17 at 13:01; Status DC Info (Do NOT chart on this entry -- for MONITORING) 1 each PRN DAILY PRN MC SEE COMMENTS; Start 05/10/17 at 13:00; Stop 05/12/17 at 12:59 Piperacillin Sod/ Tazobactam Sod (Zosyn Per Pharmacy) 1 each PRN DAILY PRN MC SEE COMMENTS; Start 05/10/17 at 15:00 Piperacillin Sod/ Tazobactam Sod (Zosyn) 3.375 gm ONCE ONCE IVP Last administered on 05/10/17 15:10; Start 05/10/17 at 15:00; Stop 05/10/17 at 15 :01; Status DC Piperacillin Sod/ Tazobactam Sod (Zosyn) 3.375 gm Q6HRS IVP Last administered on 05/12/17 07:54; Start 05/10/17 at 22:30 Ondansetron HCl (Zofran) 4 mg PRN Q8HRS PRN IV NAUSEA/VOMITING; Start at 16:45; Stop 05/11/17 at 16:44; Status DC Morphine Sulfate 4 mg PRN Q2HR PRN IV PAIN Last administered on 05/10/17 22: 09; Start 05/10/17 at 16:45; Stop 05/11/17 at 16:44; Status DC Acetaminophen (Tylenol) 650 mg PRN Q4HRS PRN PO FEVER; Start 05/10/17 at 16:45 ; Stop 05/11/17 at 16:44; Status DC Lactobacillus Rhamnosus (Culturelle) 1 cap BID PO Last administered on 20:52; Start 05/10/17 at 21:00 Oxycodone/ Acetaminophen (Percocet 5/325) 1 tab PRN Q4HRS PRN PO MODERATED PAIN Last administered on 05/11/17 10:07; Start 05/10/17 at 18:30 Mineral Oil (Fleet Mineral Oil) 133 ml 1X ONCE NV Last administered on 20:47; Start 05/10/17 at 19:00; Stop 05/10/17 at 19:01; Status DC Sodium Cl/Sod Bicarb/Potass Cl/ PEG (Golytely) 4,000 ml 1X ONCE PO Last administered on 05/10/17 20:47; Start 05/10/17 at 19:00; Stop 05/10/17 at 19 :01; Status DC Fentanyl Citrate (Fentanyl 2ml Vial) 25 mcg PRN Q2HR PRN IV SEVERE PAIN Last administered on 05/12/17 07:42; Start 05/10/17 at 22:30 Ondansetron HCl (Zofran) 4 mg PRN Q6HRS PRN IV NAUSEA/VOMITING; Start at 10:15 Ondansetron HCl (Zofran Odt) 4 mg PRN Q6HRS PRN PO NAUSEA/VOMITING; Start 05/16 at 10:15 Acetaminophen (Tylenol) 500 mg PRN Q6HRS PRN PO MILD PAIN / TEMP Last administered on 05/11/17 19:46; Start 05/11/17 at 10:15 Potassium Chloride/Sodium Chloride 1,000 ml @ 75 mls/hr 1X ONCE IV Last administered on 05/11/17 12:47; Start 05/11/17 at 10:15; Stop 05/11/17 at 23 :34; Status DC Oxycodone/ Acetaminophen (Percocet 5/325) 1 tab PRN Q4HRS PRN PO PAIN; Start 05/11/17 at 11:30; Stop 05/11/17 at 12:56; Status DC Oxycodone/ Acetaminophen (Percocet 10/325) 1 tab PRN Q4HRS PRN PO pain Last administered on 05/11/17 19:46; Start 05/11/17 at 11:30 Docusate Sodium (Colace) 100 mg BID PO Last administered on 05/11/17 20:52; Start 05/11/17 at 21:00 Polyethylene Glycol (miraLAX PACKET) 17 gm DAILY PO Last administered on 13:05; Start 05/11/17 at 12:00 Magnesium Hydroxide (Milk Of Magnesia) 2,400 mg PRN DAILY PRN PO CONSTIPATION; Start 05/11/17 at 11:30 Active Scripts Active Oxycodone-Acetaminophen 5-325 (Oxycodone Hcl/Acetaminophen) 1 Each Tablet 1 Tab PO PRN Q4HRS PRN Culturelle (Lactobacillus Rhamnosus Gg) 1 Each Cap.sprink 1 Cap PO BID Amox Tr-K Clv 875-125 Mg Tab (Amoxicillin/Potassium Clav) 1 Each Tablet 1 Tab PO BID Vitals/I & O Vital Sign - Last 24 Hours 05/11/17 05/11/17 05/11/17 05/11/17 15:00 19:00 19:45 19:46 Temp 98.3 97.8 98.3 97.8 Pulse 79 99 Resp 18 20 B/P (MAP) 135/77 (96) 158/93 (114) Pulse Ox 96 93 96 O2 Delivery Room Air Room Air Room Air Room Air 05/11/17 05/11/17 05/12/17 05/12/17 20:50 23:00 03:00 07:15 Temp 98.8 97.7 98.1 98.8 97.7 98.1 Pulse 84 78 84 Resp 20 18 18 20 B/P (MAP) 106/53 (70) 119/70 (86) 116/65 (82) Pulse Ox 96 92 96 95 O2 Delivery Room Air Room Air Room Air Room Air 05/12/17 05/12/17 05/12/17 05/12/17 07:42 07:45 08:20 11:03 Temp 97.9 97.9 Pulse 79 Resp 18 B/P (MAP) 133/76 (95) Pulse Ox 96 O2 Delivery Room Air Room Air Room Air Room Air Intake and Output 05/11/17 05/11/17 05/12/17 15:00 23:00 07:00 Intake Total 500 ml 620 ml Balance 500 ml 620 ml CHRISTOPHE COOK MD May 12, 2017 11:25
[2017-05-12] MEDS: POLYETHYLENE GLYCOL 3350 17 GM PACKET. PO SCH (13:18)
[2017-05-12] MEDS: LACTOBACILLUS RHAMNOSUS GG 1 CAPSULE. PO SCH ×2 (13:18→19:16)
[2017-05-12] MEDS: DOCUSATE SODIUM 100 MG CAPSULE. PO SCH ×2 (13:18→19:17)
[2017-05-12] MEDS: oxyCODONE/APAP 10/325 1 TAB TABLET PO PRN ×2 (13:22→19:17)
[2017-05-12 15:04] VITALS: BP 115/71
--- NOTE | 2017-05-12 16:24 | RAD ---
MRCP, 05/12/2017: History: Abdominal pain after cholecystectomy, abnormal liver function test Imaging was performed in axial and coronal planes utilizing a variety of imaging sequences including T2 weighted, fat-suppressed T2 weighted and opposed phase gradient echo sequences. Heavily T2 weighted 2-D and 3-D MRCP sequences were also performed with 3-D reconstructions produced. The study is compromised by patient motion artifact. The biliary system was best demonstrated on image 2 of series #2 and. The gallbladder surgically absent. The intrahepatic and hepatic bile ducts are not dilated. The pancreatic duct is unremarkable. Areas of fluid type signal are seen at the surgical site in the gallbladder fossa as well as along the margins of the right lobe of the liver. Similar findings were present on the 05/10/2017 CT study. This does not appear to have progressed. This is a nonspecific finding which may represent postoperative seroma or biloma. Infection cannot be excluded. A small fluid collection along the posterior aspect of the second portion of the duodenum adjacent to the pancreatic head is probably a duodenal diverticulum. Hemoperitoneum seen in the upper abdomen on the previous CT study is not clearly visualized on these limited MRCP images. There is a small amount of persistent pleural fluid and infiltrate in the right lung base. IMPRESSION: 1. Suboptimal exam demonstrating no biliary tract abnormality. 2. Stable postsurgical findings, similar to those seen on the 05/10/2017 CT exam.
[2017-05-12 19:00] VITALS: BP 125/65
[2017-05-12 23:00] VITALS: BP 112/58
[2017-05-13] MEDS: PIPERACILLIN/TAZO IV Push 3.375 GM VIAL. IVP SCH ×3 (01:40→11:51)
[2017-05-13] MEDS: oxyCODONE/APAP 10/325 1 TAB TABLET PO PRN ×2 (01:45→08:48)
[2017-05-13 03:00] VITALS: BP 109/56
[2017-05-13 03:55] LABS: BASO % 0 % (0-3); EOS % 2 % (0-3); HEMATOCRIT 25.4 % (36.0-47.0); HEMOGLOBIN 8.4 g/dL (12.0-15.5); LYMPH # 1.1 x10^3/uL (1.0-4.8); LYMPH % 11 % (24-48); MEAN CORPUSCULAR HEMOGLOBIN 29 pg (25-35); MEAN CORPUSCULAR HGB CONC 33 g/dL (31-37); MEAN CORPUSCULAR VOLUME 87 fL (79-100); MONO % 10 % (0-9); NEUT % 77 % (31-73); PLATELET COUNT 294 x10^3/uL (140-400); RED BLOOD COUNT 2.93 x10^6/uL (3.50-5.40); RED CELL DISTRIBUTION WIDTH 15.8 % (11.5-14.5); WHITE BLOOD COUNT 9.8 x10^3/uL (4.0-11.0)
[2017-05-13 04:35] LABS: ALBUMIN 2.2 g/dL (3.4-5.0); ALBUMIN/GLOBULIN RATIO 0.5 (1.0-1.7); CALCIUM 8.2 mg/dL (8.5-10.1); CREATININE 0.7 mg/dL (0.6-1.0); GFR 87.2; POTASSIUM 3.6 mmol/L (3.5-5.1); TOTAL BILIRUBIN 1.3 mg/dL (0.2-1.0); TOTAL PROTEIN 6.5 g/dL (6.4-8.2)
[2017-05-13 07:00] VITALS: BP 118/76
[2017-05-13] MEDS: LACTOBACILLUS RHAMNOSUS GG 1 CAPSULE. PO SCH (08:42)
[2017-05-13] MEDS: POLYETHYLENE GLYCOL 3350 17 GM PACKET. PO SCH (08:42)
[2017-05-13] MEDS: DOCUSATE SODIUM 100 MG CAPSULE. PO SCH (08:42)
[2017-05-13 11:00] VITALS: BP 133/71
--- NOTE | 2017-05-13 11:20 | PDOC ---
ROD QUIÑONES DATA COMMUNICATIONS TECHNICIAN 05/13/17 1120: SURGICAL PROGRESS NOTE Subjective tolerating diet no significant pain constipation Vital Signs Vital Signs Date Time Temp Pulse Resp B/P (MAP) Pulse Ox O2 Delivery O2 Flow Rate FiO2 05/13/17 11:00 97.7 79 18 133/71 (91) 94 Room Air 97.7 I&O Intake and Output 05/13/17 07:00 Intake Total 640 ml Output Total 3 ml Balance 637 ml Intake Oral 640 ml Output Stool Total 3 ml # Voids 3 General: Alert, Oriented X3, Cooperative, No acute distress Abdomen: Soft, Other (ND, NTTP) Labs Laboratory Tests Test 05/11/17 14:25 05/12/17 03:50 05/13/17 03:15 Hepatitis A IgM Antibody Negative (Negative) Hepatitis B Surface Antigen Negative (Negative) Hepatitis B Core IgM Antibody Negative (Negative) Hepatitis C Antibody >11.0 s/co ratio Total Bilirubin 1.2 mg/dL (0.2-1.0) 1.3 mg/dL (0.2-1.0) Direct Bilirubin 0.5 mg/dL (0.0-0.2) Aspartate Amino Transf (AST/SGOT) 58 U/L (15-37) 43 U/L (15-37) Alanine Aminotransferase (ALT/SGPT) 71 U/L (14-59) 54 U/L (14-59) Alkaline Phosphatase 215 U/L (46-116) 215 U/L (46-116) Total Protein 6.3 g/dL (6.4-8.2) 6.5 g/dL (6.4-8.2) Albumin 2.1 g/dL (3.4-5.0) 2.2 g/dL (3.4-5.0) White Blood Count 9.8 x10^3/uL (4.0-11.0) Red Blood Count 2.93 x10^6/uL (3.50-5.40) Hemoglobin 8.4 g/dL (12.0-15.5) Hematocrit 25.4 % (36.0-47.0) Mean Corpuscular Volume 87 fL (79-100) Mean Corpuscular Hemoglobin 29 pg (25-35) Mean Corpuscular Hemoglobin Concent 33 g/dL (31-37) Red Cell Distribution Width 15.8 % (11.5-14.5) Platelet Count 294 x10^3/uL (140-400) Neutrophils (%) (Auto) 77 % (31-73) Lymphocytes (%) (Auto) 11 % (24-48) Monocytes (%) (Auto) 10 % (0-9) Eosinophils (%) (Auto) 2 % (0-3) Basophils (%) (Auto) 0 % (0-3) Neutrophils # (Auto) 7.6 x10^3uL (1.8-7.7) Lymphocytes # (Auto) 1.1 x10^3/uL (1.0-4.8) Monocytes # (Auto) 0.9 x10^3/uL (0.0-1.1) Eosinophils # (Auto) 0.2 x10^3/uL (0.0-0.7) Basophils # (Auto) 0.0 x10^3/uL (0.0-0.2) Sodium Level 137 mmol/L (136-145) Potassium Level 3.6 mmol/L (3.5-5.1) Chloride Level 102 mmol/L (98-107) Carbon Dioxide Level 27 mmol/L (21-32) Anion Gap 8 (6-14) Blood Urea Nitrogen 11 mg/dL (7-20) Creatinine 0.7 mg/dL (0.6-1.0) Estimated GFR (Cockcroft-Gault) 87.2 BUN/Creatinine Ratio 16 (6-20) Glucose Level 109 mg/dL (70-99) Calcium Level 8.2 mg/dL (8.5-10.1) Albumin/Globulin Ratio 0.5 (1.0-1.7) Laboratory Tests Test 05/13/17 03:15 White Blood Count 9.8 x10^3/uL (4.0-11.0) Red Blood Count 2.93 x10^6/uL (3.50-5.40) Hemoglobin 8.4 g/dL (12.0-15.5) Hematocrit 25.4 % (36.0-47.0) Mean Corpuscular Volume 87 fL (79-100) Mean Corpuscular Hemoglobin 29 pg (25-35) Mean Corpuscular Hemoglobin Concent 33 g/dL (31-37) Red Cell Distribution Width 15.8 % (11.5-14.5) Platelet Count 294 x10^3/uL (140-400) Neutrophils (%) (Auto) 77 % (31-73) Lymphocytes (%) (Auto) 11 % (24-48) Monocytes (%) (Auto) 10 % (0-9) Eosinophils (%) (Auto) 2 % (0-3) Basophils (%) (Auto) 0 % (0-3) Neutrophils # (Auto) 7.6 x10^3uL (1.8-7.7) Lymphocytes # (Auto) 1.1 x10^3/uL (1.0-4.8) Monocytes # (Auto) 0.9 x10^3/uL (0.0-1.1) Eosinophils # (Auto) 0.2 x10^3/uL (0.0-0.7) Basophils # (Auto) 0.0 x10^3/uL (0.0-0.2) Sodium Level 137 mmol/L (136-145) Potassium Level 3.6 mmol/L (3.5-5.1) Chloride Level 102 mmol/L (98-107) Carbon Dioxide Level 27 mmol/L (21-32) Anion Gap 8 (6-14) Blood Urea Nitrogen 11 mg/dL (7-20) Creatinine 0.7 mg/dL (0.6-1.0) Estimated GFR (Cockcroft-Gault) 87.2 BUN/Creatinine Ratio 16 (6-20) Glucose Level 109 mg/dL (70-99) Calcium Level 8.2 mg/dL (8.5-10.1) Total Bilirubin 1.3 mg/dL (0.2-1.0) Aspartate Amino Transf (AST/SGOT) 43 U/L (15-37) Alanine Aminotransferase (ALT/SGPT) 54 U/L (14-59) Alkaline Phosphatase 215 U/L (46-116) Total Protein 6.5 g/dL (6.4-8.2) Albumin 2.2 g/dL (3.4-5.0) Albumin/Globulin Ratio 0.5 (1.0-1.7) Assessment/Plan stable constipation, continue laxatives, bowel regimen can DC from surgical pov Problems: KIT TORRES MD 05/13/17 1255: SURGICAL PROGRESS NOTE Assessment/Plan Agree with Nickel's assessment and plan. Problems: ROD QUIÑONES APRN May 13, 2017 11:20 KIT TORRES MD May 13, 2017 12:55
--- NOTE | 2017-05-13 11:36 | PDOC ---
Subjective: Subjective: Seen earlier today during [employer] downtime. Feels better, a little RUQ discomfort - mostly w/ movement. Tolerating PO, got up to shower, wants to go home. Objective: Vital Signs: Vital Signs Date Time Temp Pulse Resp B/P (MAP) Pulse Ox O2 Delivery O2 Flow Rate FiO2 05/13/17 11:00 97.7 79 18 133/71 (91) 94 Room Air 97.7 Labs: Laboratory Tests Test 05/13/17 03:15 White Blood Count 9.8 x10^3/uL Red Blood Count 2.93 x10^6/uL Hemoglobin 8.4 g/dL Hematocrit 25.4 % Mean Corpuscular Volume 87 fL Mean Corpuscular Hemoglobin 29 pg Mean Corpuscular Hemoglobin Concent 33 g/dL Red Cell Distribution Width 15.8 % Platelet Count 294 x10^3/uL Neutrophils (%) (Auto) 77 % Lymphocytes (%) (Auto) 11 % Monocytes (%) (Auto) 10 % Eosinophils (%) (Auto) 2 % Basophils (%) (Auto) 0 % Neutrophils # (Auto) 7.6 x10^3uL Lymphocytes # (Auto) 1.1 x10^3/uL Monocytes # (Auto) 0.9 x10^3/uL Eosinophils # (Auto) 0.2 x10^3/uL Basophils # (Auto) 0.0 x10^3/uL Sodium Level 137 mmol/L Potassium Level 3.6 mmol/L Chloride Level 102 mmol/L Carbon Dioxide Level 27 mmol/L Anion Gap 8 Blood Urea Nitrogen 11 mg/dL Creatinine 0.7 mg/dL Estimated GFR (Cockcroft-Gault) 87.2 BUN/Creatinine Ratio 16 Glucose Level 109 mg/dL Calcium Level 8.2 mg/dL Total Bilirubin 1.3 mg/dL Aspartate Amino Transf (AST/SGOT) 43 U/L Alanine Aminotransferase (ALT/SGPT) 54 U/L Alkaline Phosphatase 215 U/L Total Protein 6.5 g/dL Albumin 2.2 g/dL Albumin/Globulin Ratio 0.5 Imaging: MRCP 05/12/17 The study is compromised by patient motion artifact. The biliary system was best demonstrated on image 2 of series #2 and. The gallbladder surgically absent. The intrahepatic and hepatic bile ducts are not dilated. The pancreatic duct is unremarkable. Areas of fluid type signal are seen at the surgical site in the gallbladder fossa as well as along the margins of the right lobe of the liver. Similar findings were present on the 05/10/2017 CT study. This does not appear to have progressed. This is a nonspecific finding which may represent postoperative seroma or biloma. Infection cannot be excluded. A small fluid collection along the posterior aspect of the second portion of the duodenum adjacent to the pancreatic head is probably a duodenal diverticulum. Hemoperitoneum seen in the upper abdomen on the previous CT study is not clearly visualized on these limited MRCP images. There is a small amount of persistent pleural fluid and infiltrate in the right lung base. IMPRESSION: 1. Suboptimal exam demonstrating no biliary tract abnormality. 2. Stable postsurgical findings, similar to those seen on the 05/10/2017 CT exam. PE: GEN: NAD LUNGS: CTAB HEART: RRR ABD: mild RUQ discomfort NEURO/PSYCH: A & O 3 A/P: Abd pain - improved S/p lap [place] 05/05 (cholelithiasis, cholecystitis) -CT w/ fluid collection in GB fossa and hemoperitoneum, HIDA ok, MRCP unrevealing Elevated LFTs - improved/stable Hep C -fatty liver imaging Normocytic anemia - stable -no previous EGD or colonoscopy -FH esophageal and colon cancer Lifelong constipation - improved -- DC per primary. Hep C viral load/genotype as outpt. Outpt EGD and colonoscopy. Encourage obtaining health insurance. Encouraged ongoing treatment of constipation, she says she doesn't usually take meds. ULISES LUBIN May 13, 2017 11:36
--- NOTE | 2017-05-13 11:40 | PDOC ---
PROGRESS NOTES Chief Complaint Chief Complaint Abdominal pain, status post cholecystectomy 05/05 by our general surgery team Obstipation Obesity BMI 42 remains on iv zosyn, will consult id, mild ruq pain noted today MRCP notes infection not excluded History of Present Illness History of Present Illness Abdominal pain continues patient is nothing by mouth. Patient is plan for MRCP by GI. id consulted today re antibiotic rx Plan: Vitals Vitals Vital Signs Date Time Temp Pulse Resp B/P (MAP) Pulse Ox O2 Delivery O2 Flow Rate FiO2 05/13/17 11:00 97.7 79 18 133/71 (91) 94 Room Air 97.7 Physical Exam General: Alert, Oriented X3, Cooperative, No acute distress Heart: Regular rate, Normal S1, Normal S2 Lungs: Clear Abdomen: Soft, Other (ND, NTTP) Extremities: No clubbing, No cyanosis Skin: No rashes, No breakdown Labs LABS MRCP, 05/12/2017: History: Abdominal pain after cholecystectomy, abnormal liver function test Imaging was performed in axial and coronal planes utilizing a variety of imaging sequences including T2 weighted, fat-suppressed T2 weighted and opposed phase gradient echo sequences. Heavily T2 weighted 2-D and 3-D MRCP sequences were also performed with 3-D reconstructions produced. The study is compromised by patient motion artifact. The biliary system was best demonstrated on image 2 of series #2 and. The gallbladder surgically absent. The intrahepatic and hepatic bile ducts are not dilated. The pancreatic duct is unremarkable. Areas of fluid type signal are seen at the surgical site in the gallbladder fossa as well as along the margins of the right lobe of the liver. Similar findings were present on the 05/10/2017 CT study. This does not appear to have progressed. This is a nonspecific finding which may represent postoperative seroma or biloma. Infection cannot be excluded. A small fluid collection along the posterior aspect of the second portion of the duodenum adjacent to the pancreatic head is probably a duodenal diverticulum. Hemoperitoneum seen in the upper abdomen on the previous CT study is not clearly visualized on these limited MRCP images. There is a small amount of persistent pleural fluid and infiltrate in the right lung base. IMPRESSION: 1. Suboptimal exam demonstrating no biliary tract abnormality. 2. Stable postsurgical findings, similar to those seen on the 05/10/2017 CT exam. Laboratory Tests Test 05/13/17 03:15 White Blood Count 9.8 x10^3/uL (4.0-11.0) Red Blood Count 2.93 x10^6/uL (3.50-5.40) Hemoglobin 8.4 g/dL (12.0-15.5) Hematocrit 25.4 % (36.0-47.0) Mean Corpuscular Volume 87 fL (79-100) Mean Corpuscular Hemoglobin 29 pg (25-35) Mean Corpuscular Hemoglobin Concent 33 g/dL (31-37) Red Cell Distribution Width 15.8 % (11.5-14.5) Platelet Count 294 x10^3/uL (140-400) Neutrophils (%) (Auto) 77 % (31-73) Lymphocytes (%) (Auto) 11 % (24-48) Monocytes (%) (Auto) 10 % (0-9) Eosinophils (%) (Auto) 2 % (0-3) Basophils (%) (Auto) 0 % (0-3) Neutrophils # (Auto) 7.6 x10^3uL (1.8-7.7) Lymphocytes # (Auto) 1.1 x10^3/uL (1.0-4.8) Monocytes # (Auto) 0.9 x10^3/uL (0.0-1.1) Eosinophils # (Auto) 0.2 x10^3/uL (0.0-0.7) Basophils # (Auto) 0.0 x10^3/uL (0.0-0.2) Sodium Level 137 mmol/L (136-145) Potassium Level 3.6 mmol/L (3.5-5.1) Chloride Level 102 mmol/L (98-107) Carbon Dioxide Level 27 mmol/L (21-32) Anion Gap 8 (6-14) Blood Urea Nitrogen 11 mg/dL (7-20) Creatinine 0.7 mg/dL (0.6-1.0) Estimated GFR (Cockcroft-Gault) 87.2 BUN/Creatinine Ratio 16 (6-20) Glucose Level 109 mg/dL (70-99) Calcium Level 8.2 mg/dL (8.5-10.1) Total Bilirubin 1.3 mg/dL (0.2-1.0) Aspartate Amino Transf (AST/SGOT) 43 U/L (15-37) Alanine Aminotransferase (ALT/SGPT) 54 U/L (14-59) Alkaline Phosphatase 215 U/L (46-116) Total Protein 6.5 g/dL (6.4-8.2) Albumin 2.2 g/dL (3.4-5.0) Albumin/Globulin Ratio 0.5 (1.0-1.7) Review of Systems Review of Systems ruq pain persists Assessment and Plan Assessmemt and Plan Abdominal pain, status post cholecystectomy 05/05 by our general surgery team Obstipation Obesity BMI 42 remains on iv zosyn, will consult id, mild ruq pain noted today Problems: Comment Review of Relevant I have reviewed the following items jasson (where applicable) has been applied. Labs Laboratory Tests Test 05/11/17 14:25 05/12/17 03:50 05/13/17 03:15 Hepatitis A IgM Antibody Negative (Negative) Hepatitis B Surface Antigen Negative (Negative) Hepatitis B Core IgM Antibody Negative (Negative) Hepatitis C Antibody >11.0 s/co ratio Total Bilirubin 1.2 mg/dL (0.2-1.0) 1.3 mg/dL (0.2-1.0) Direct Bilirubin 0.5 mg/dL (0.0-0.2) Aspartate Amino Transf (AST/SGOT) 58 U/L (15-37) 43 U/L (15-37) Alanine Aminotransferase (ALT/SGPT) 71 U/L (14-59) 54 U/L (14-59) Alkaline Phosphatase 215 U/L (46-116) 215 U/L (46-116) Total Protein 6.3 g/dL (6.4-8.2) 6.5 g/dL (6.4-8.2) Albumin 2.1 g/dL (3.4-5.0) 2.2 g/dL (3.4-5.0) White Blood Count 9.8 x10^3/uL (4.0-11.0) Red Blood Count 2.93 x10^6/uL (3.50-5.40) Hemoglobin 8.4 g/dL (12.0-15.5) Hematocrit 25.4 % (36.0-47.0) Mean Corpuscular Volume 87 fL (79-100) Mean Corpuscular Hemoglobin 29 pg (25-35) Mean Corpuscular Hemoglobin Concent 33 g/dL (31-37) Red Cell Distribution Width 15.8 % (11.5-14.5) Platelet Count 294 x10^3/uL (140-400) Neutrophils (%) (Auto) 77 % (31-73) Lymphocytes (%) (Auto) 11 % (24-48) Monocytes (%) (Auto) 10 % (0-9) Eosinophils (%) (Auto) 2 % (0-3) Basophils (%) (Auto) 0 % (0-3) Neutrophils # (Auto) 7.6 x10^3uL (1.8-7.7) Lymphocytes # (Auto) 1.1 x10^3/uL (1.0-4.8) Monocytes # (Auto) 0.9 x10^3/uL (0.0-1.1) Eosinophils # (Auto) 0.2 x10^3/uL (0.0-0.7) Basophils # (Auto) 0.0 x10^3/uL (0.0-0.2) Sodium Level 137 mmol/L (136-145) Potassium Level 3.6 mmol/L (3.5-5.1) Chloride Level 102 mmol/L (98-107) Carbon Dioxide Level 27 mmol/L (21-32) Anion Gap 8 (6-14) Blood Urea Nitrogen 11 mg/dL (7-20) Creatinine 0.7 mg/dL (0.6-1.0) Estimated GFR (Cockcroft-Gault) 87.2 BUN/Creatinine Ratio 16 (6-20) Glucose Level 109 mg/dL (70-99) Calcium Level 8.2 mg/dL (8.5-10.1) Albumin/Globulin Ratio 0.5 (1.0-1.7) Laboratory Tests Test 05/13/17 03:15 White Blood Count 9.8 x10^3/uL (4.0-11.0) Red Blood Count 2.93 x10^6/uL (3.50-5.40) Hemoglobin 8.4 g/dL (12.0-15.5) Hematocrit 25.4 % (36.0-47.0) Mean Corpuscular Volume 87 fL (79-100) Mean Corpuscular Hemoglobin 29 pg (25-35) Mean Corpuscular Hemoglobin Concent 33 g/dL (31-37) Red Cell Distribution Width 15.8 % (11.5-14.5) Platelet Count 294 x10^3/uL (140-400) Neutrophils (%) (Auto) 77 % (31-73) Lymphocytes (%) (Auto) 11 % (24-48) Monocytes (%) (Auto) 10 % (0-9) Eosinophils (%) (Auto) 2 % (0-3) Basophils (%) (Auto) 0 % (0-3) Neutrophils # (Auto) 7.6 x10^3uL (1.8-7.7) Lymphocytes # (Auto) 1.1 x10^3/uL (1.0-4.8) Monocytes # (Auto) 0.9 x10^3/uL (0.0-1.1) Eosinophils # (Auto) 0.2 x10^3/uL (0.0-0.7) Basophils # (Auto) 0.0 x10^3/uL (0.0-0.2) Sodium Level 137 mmol/L (136-145) Potassium Level 3.6 mmol/L (3.5-5.1) Chloride Level 102 mmol/L (98-107) Carbon Dioxide Level 27 mmol/L (21-32) Anion Gap 8 (6-14) Blood Urea Nitrogen 11 mg/dL (7-20) Creatinine 0.7 mg/dL (0.6-1.0) Estimated GFR (Cockcroft-Gault) 87.2 BUN/Creatinine Ratio 16 (6-20) Glucose Level 109 mg/dL (70-99) Calcium Level 8.2 mg/dL (8.5-10.1) Total Bilirubin 1.3 mg/dL (0.2-1.0) Aspartate Amino Transf (AST/SGOT) 43 U/L (15-37) Alanine Aminotransferase (ALT/SGPT) 54 U/L (14-59) Alkaline Phosphatase 215 U/L (46-116) Total Protein 6.5 g/dL (6.4-8.2) Albumin 2.2 g/dL (3.4-5.0) Albumin/Globulin Ratio 0.5 (1.0-1.7) Medications Current Medications Fentanyl Citrate (Fentanyl 2ml Vial) 50 mcg PRN Q15MIN PRN IV PAIN GREATER THAN 3/10 Last administered on 05/10/17 15:23; Start 05/10/17 at 12:45; Stop 05/10/17 at 22:20; Status DC Sodium Chloride 1,000 ml @ 1,000 mls/hr Q1H IV Last administered on 12:53; Start 05/10/17 at 12:44; Stop 05/10/17 at 13:43; Status DC Ondansetron HCl (Zofran) 4 mg 1X ONCE IV Last administered on 05/10/17 12:53 ; Start 05/10/17 at 12:45; Stop 05/10/17 at 12:49; Status DC Ondansetron HCl (Zofran) 4 mg STK-MED ONCE .ROUTE ; Start 05/10/17 at 12:50; Stop 05/10/17 at 12:51; Status DC Fentanyl Citrate (Fentanyl 2ml Vial) 100 mcg STK-MED ONCE .ROUTE ; Start at 12:50; Stop 05/10/17 at 12:51; Status DC Iohexol (Omnipaque 300 Mg/ml) 75 ml 1X ONCE IV Last administered on 13:27; Start 05/10/17 at 13:00; Stop 05/10/17 at 13:01; Status DC Info (Do NOT chart on this entry -- for MONITORING) 1 each PRN DAILY PRN MC SEE COMMENTS; Start 05/10/17 at 13:00; Stop 05/12/17 at 12:59; Status DC Piperacillin Sod/ Tazobactam Sod (Zosyn Per Pharmacy) 1 each PRN DAILY PRN MC SEE COMMENTS; Start 05/10/17 at 15:00; Stop 05/12/17 at 13:15; Status DC Piperacillin Sod/ Tazobactam Sod (Zosyn) 3.375 gm ONCE ONCE IVP Last administered on 05/10/17 15:10; Start 05/10/17 at 15:00; Stop 05/10/17 at 15 :01; Status DC Piperacillin Sod/ Tazobactam Sod (Zosyn) 3.375 gm Q6HRS IVP Last administered on 05/13/17 05:58; Start 05/10/17 at 22:30 Ondansetron HCl (Zofran) 4 mg PRN Q8HRS PRN IV NAUSEA/VOMITING; Start at 16:45; Stop 05/11/17 at 16:44; Status DC Morphine Sulfate 4 mg PRN Q2HR PRN IV PAIN Last administered on 05/10/17 22: 09; Start 05/10/17 at 16:45; Stop 05/11/17 at 16:44; Status DC Acetaminophen (Tylenol) 650 mg PRN Q4HRS PRN PO FEVER; Start 05/10/17 at 16:45 ; Stop 05/11/17 at 16:44; Status DC Lactobacillus Rhamnosus (Culturelle) 1 cap BID PO Last administered on 08:42; Start 05/10/17 at 21:00 Oxycodone/ Acetaminophen (Percocet 5/325) 1 tab PRN Q4HRS PRN PO MODERATED PAIN Last administered on 05/11/17 10:07; Start 05/10/17 at 18:30 Mineral Oil (Fleet Mineral Oil) 133 ml 1X ONCE [place] Last administered on 20:47; Start 05/10/17 at 19:00; Stop 05/10/17 at 19:01; Status DC Sodium Cl/Sod Bicarb/Potass Cl/ PEG (Golytely) 4,000 ml 1X ONCE PO Last administered on 05/10/17 20:47; Start 05/10/17 at 19:00; Stop 05/10/17 at 19 :01; Status DC Fentanyl Citrate (Fentanyl 2ml Vial) 25 mcg PRN Q2HR PRN IV SEVERE PAIN Last administered on 05/12/17 07:42; Start 05/10/17 at 22:30 Ondansetron HCl (Zofran) 4 mg PRN Q6HRS PRN IV NAUSEA/VOMITING; Start at 10:15 Ondansetron HCl (Zofran Odt) 4 mg PRN Q6HRS PRN PO NAUSEA/VOMITING; Start 05/16 at 10:15 Acetaminophen (Tylenol) 500 mg PRN Q6HRS PRN PO MILD PAIN / TEMP Last administered on 05/11/17 19:46; Start 05/11/17 at 10:15 Potassium Chloride/Sodium Chloride 1,000 ml @ 75 mls/hr 1X ONCE IV Last administered on 05/11/17 12:47; Start 05/11/17 at 10:15; Stop 05/11/17 at 23 :34; Status DC Oxycodone/ Acetaminophen (Percocet 5/325) 1 tab PRN Q4HRS PRN PO PAIN; Start 05/11/17 at 11:30; Stop 05/11/17 at 12:56; Status DC Oxycodone/ Acetaminophen (Percocet 10/325) 1 tab PRN Q4HRS PRN PO pain Last administered on 05/13/17 08:48; Start 05/11/17 at 11:30 Docusate Sodium (Colace) 100 mg BID PO Last administered on 05/13/17 08:42; Start 05/11/17 at 21:00 Polyethylene Glycol (miraLAX PACKET) 17 gm DAILY PO Last administered on 08:42; Start 05/11/17 at 12:00 Magnesium Hydroxide (Milk Of Magnesia) 2,400 mg PRN DAILY PRN PO CONSTIPATION; Start 05/11/17 at 11:30 Active Scripts Active Oxycodone-Acetaminophen 5-325 (Oxycodone Hcl/Acetaminophen) 1 Each Tablet 1 Tab PO PRN Q4HRS PRN Culturelle (Lactobacillus Rhamnosus Gg) 1 Each Cap.sprink 1 Cap PO BID Amox Tr-K Clv 875-125 Mg Tab (Amoxicillin/Potassium Clav) 1 Each Tablet 1 Tab PO BID Vitals/I & O Vital Sign - Last 24 Hours 05/12/17 05/12/17 05/12/17 05/12/17 13:22 15:04 19:00 19:17 Temp 99.9 99.0 99.9 99.0 Pulse 85 82 Resp 20 18 B/P (MAP) 115/71 (86) 125/65 (85) Pulse Ox 96 96 O2 Delivery Room Air Room Air Room Air Room Air 05/12/17 05/12/17 05/13/17 05/13/17 20:00 23:00 01:45 03:00 Temp 98.8 98.4 98.8 98.4 Pulse 83 80 Resp 18 18 B/P (MAP) 112/58 (76) 109/56 (73) Pulse Ox 93 93 O2 Delivery Room Air Room Air Room Air Room Air 1205/13/17 05/13/17 05/13/17 07:00 08:00 08:48 09:56 Temp 98.2 98.2 Pulse 95 Resp 18 B/P (MAP) 118/76 (90) Pulse Ox 97 O2 Delivery Room Air Room Air Room Air Room Air 05/13/17 11:00 Temp 97.7 97.7 Pulse 79 Resp 18 B/P (MAP) 133/71 (91) Pulse Ox 94 O2 Delivery Room Air Intake and Output 05/12/17 05/12/17 05/13/17 15:00 23:00 07:00 Intake Total 360 ml 280 ml Output Total 3 ml Balance 360 ml 277 ml KIT BAUER MD May 13, 2017 11:40
[2017-05-13 12:40] LABS: CALCIUM 8.3 mg/dL (8.5-10.1); CREATININE 0.7 mg/dL (0.6-1.0); GFR 87.2; POTASSIUM 3.5 mmol/L (3.5-5.1)
--- NOTE | 2017-05-13 13:01 | PDOC3 ---
Discharge Summary Date of Admission: May 10, 2017 Date of Discharge: May 13, 2017 Follow-Up: 3-5 days Admitting Diagnosis comment: DISCHARGE DIAGNOSIS Abdominal pain, status post cholecystectomy 05/05 by our general surgery team Obstipation Obesity BMI 42 RX AUGMENTIN 875 MG BID X 10 DAYS will D/W id, mild ruq pain noted today MRCP notes infection not excluded History of Present Illness History of Present Illness Abdominal pain continues BUT SEEMS STABLE REVIEWED MRCP by D/C PLANNING 37 MIN id consulted today re antibiotic rx Plan: Vitals Vitals Vital Signs Date Time Temp Pulse Resp B/P (MAP) Pulse Ox O2 Delivery O2 Flow Rate FiO2 05/13/17 11:00 97.7 79 18 133/71 (91) 94 Room Air 97.7 Physical Exam General: Alert, Oriented X3, Cooperative, No acute distress Heart: Regular rate, Normal S1, Normal S2 Lungs: Clear Abdomen: Soft, Other (ND, NTTP) Extremities: No clubbing, No cyanosis Skin: No rashes, No breakdown Labs LABS MRCP, 05/12/2017: History: Abdominal pain after cholecystectomy, abnormal liver function test Imaging was performed in axial and coronal planes utilizing a variety of imaging sequences including T2 weighted, fat-suppressed T2 weighted and opposed phase gradient echo sequences. Heavily T2 weighted 2-D and 3-D MRCP sequences were also performed with 3-D reconstructions produced. The study is compromised by patient motion artifact. The biliary system was best demonstrated on image 2 of series #2 and. The gallbladder surgically absent. The intrahepatic and hepatic bile ducts are not dilated. The pancreatic duct is unremarkable. Areas of fluid type signal are seen at the surgical site in the gallbladder fossa as well as along the margins of the right lobe of the liver. Similar findings were present on the 05/10/2017 CT study. This does not appear to have progressed. This is a nonspecific finding which may represent postoperative seroma or biloma. Infection cannot be excluded. A small fluid collection along the posterior aspect of the second portion of the duodenum adjacent to the pancreatic head is probably a duodenal diverticulum. Hemoperitoneum seen in the upper abdomen on the previous CT study is not clearly visualized on these limited MRCP images. There is a small amount of persistent pleural fluid and infiltrate in the right lung base. IMPRESSION: 1. Suboptimal exam demonstrating no biliary tract abnormality. 2. Stable postsurgical findings, similar to those seen on the 05/10/2017 CT exam. Problems: (1) Abdominal pain (2) Cholecystitis Brief Hospital Course Ms. Alvarez is a 56 old [sex] who presented with [ ] Chief Complaint Chief Complaint Abdominal pain, status post cholecystectomy 05/05 by our general surgery team Obstipation Obesity BMI 42 remains on iv zosyn, will consult id, mild ruq pain noted today MRCP notes infection not excluded History of Present Illness History of Present Illness Abdominal pain continues patient is nothing by mouth. Patient is plan for MRCP by GI. id consulted today re antibiotic rx Plan: Vitals Vitals Vital Signs Date Time Temp Pulse Resp B/P (MAP) Pulse Ox O2 Delivery O2 Flow Rate FiO2 05/13/17 11:00 97.7 79 18 133/71 (91) 94 Room Air 97.7 Physical Exam General: Alert, Oriented X3, Cooperative, No acute distress Heart: Regular rate, Normal S1, Normal S2 Lungs: Clear Abdomen: Soft, Other (ND, NTTP) Extremities: No clubbing, No cyanosis Skin: No rashes, No breakdown Labs LABS MRCP, 05/12/2017: History: Abdominal pain after cholecystectomy, abnormal liver function test Imaging was performed in axial and coronal planes utilizing a variety of imaging sequences including T2 weighted, fat-suppressed T2 weighted and opposed phase gradient echo sequences. Heavily T2 weighted 2-D and 3-D MRCP sequences were also performed with 3-D reconstructions produced. The study is compromised by patient motion artifact. The biliary system was best demonstrated on image 2 of series #2 and. The gallbladder surgically absent. The intrahepatic and hepatic bile ducts are not dilated. The pancreatic duct is unremarkable. Areas of fluid type signal are seen at the surgical site in the gallbladder fossa as well as along the margins of the right lobe of the liver. Similar findings were present on the 05/10/2017 CT study. This does not appear to have progressed. This is a nonspecific finding which may represent postoperative seroma or biloma. Infection cannot be excluded. A small fluid collection along the posterior aspect of the second portion of the duodenum adjacent to the pancreatic head is probably a duodenal diverticulum. Hemoperitoneum seen in the upper abdomen on the previous CT study is not clearly visualized on these limited MRCP images. There is a small amount of persistent pleural fluid and infiltrate in the right lung base. IMPRESSION: 1. Suboptimal exam demonstrating no biliary tract abnormality. 2. Stable postsurgical findings, similar to those seen on the 05/10/2017 CT exam. CONDITION AT DISCHARGE: Improved, Stable Discharge Medications Current Medications Fentanyl Citrate (Fentanyl 2ml Vial) 50 mcg PRN Q15MIN PRN IV PAIN GREATER THAN 3/10 Last administered on 05/10/17 15:23; Start 05/10/17 at 12:45; Stop 05/10/17 at 22:20; Status DC Sodium Chloride 1,000 ml @ 1,000 mls/hr Q1H IV Last administered on 12:53; Start 05/10/17 at 12:44; Stop 05/10/17 at 13:43; Status DC Ondansetron HCl (Zofran) 4 mg 1X ONCE IV Last administered on 05/10/17 12:53 ; Start 05/10/17 at 12:45; Stop 05/10/17 at 12:49; Status DC Ondansetron HCl (Zofran) 4 mg STK-MED ONCE .ROUTE ; Start 05/10/17 at 12:50; Stop 05/10/17 at 12:51; Status DC Fentanyl Citrate (Fentanyl 2ml Vial) 100 mcg STK-MED ONCE .ROUTE ; Start at 12:50; Stop 05/10/17 at 12:51; Status DC Iohexol (Omnipaque 300 Mg/ml) 75 ml 1X ONCE IV Last administered on 13:27; Start 05/10/17 at 13:00; Stop 05/10/17 at 13:01; Status DC Info (Do NOT chart on this entry -- for MONITORING) 1 each PRN DAILY PRN MC SEE COMMENTS; Start 05/10/17 at 13:00; Stop 05/12/17 at 12:59; Status DC Piperacillin Sod/ Tazobactam Sod (Zosyn Per Pharmacy) 1 each PRN DAILY PRN MC SEE COMMENTS; Start 05/10/17 at 15:00; Stop 05/12/17 at 13:15; Status DC Piperacillin Sod/ Tazobactam Sod (Zosyn) 3.375 gm ONCE ONCE IVP Last administered on 05/10/17 15:10; Start 05/10/17 at 15:00; Stop 05/10/17 at 15 :01; Status DC Piperacillin Sod/ Tazobactam Sod (Zosyn) 3.375 gm Q6HRS IVP Last administered on 05/13/17 11:51; Start 05/10/17 at 22:30 Ondansetron HCl (Zofran) 4 mg PRN Q8HRS PRN IV NAUSEA/VOMITING; Start at 16:45; Stop 05/11/17 at 16:44; Status DC Morphine Sulfate 4 mg PRN Q2HR PRN IV PAIN Last administered on 05/10/17 22: 09; Start 05/10/17 at 16:45; Stop 05/11/17 at 16:44; Status DC Acetaminophen (Tylenol) 650 mg PRN Q4HRS PRN PO FEVER; Start 05/10/17 at 16:45 ; Stop 05/11/17 at 16:44; Status DC Lactobacillus Rhamnosus (Culturelle) 1 cap BID PO Last administered on 08:42; Start 05/10/17 at 21:00 Oxycodone/ Acetaminophen (Percocet 5/325) 1 tab PRN Q4HRS PRN PO MODERATED PAIN Last administered on 05/11/17 10:07; Start 05/10/17 at 18:30 Mineral Oil (Fleet Mineral Oil) 133 ml 1X ONCE NV Last administered on 20:47; Start 05/10/17 at 19:00; Stop 05/10/17 at 19:01; Status DC Sodium Cl/Sod Bicarb/Potass Cl/ PEG (Golytely) 4,000 ml 1X ONCE PO Last administered on 05/10/17 20:47; Start 05/10/17 at 19:00; Stop 05/10/17 at 19 :01; Status DC Fentanyl Citrate (Fentanyl 2ml Vial) 25 mcg PRN Q2HR PRN IV SEVERE PAIN Last administered on 05/12/17 07:42; Start 05/10/17 at 22:30 Ondansetron HCl (Zofran) 4 mg PRN Q6HRS PRN IV NAUSEA/VOMITING; Start at 10:15 Ondansetron HCl (Zofran Odt) 4 mg PRN Q6HRS PRN PO NAUSEA/VOMITING; Start 05/16 at 10:15 Acetaminophen (Tylenol) 500 mg PRN Q6HRS PRN PO MILD PAIN / TEMP Last administered on 05/11/17 19:46; Start 05/11/17 at 10:15 Potassium Chloride/Sodium Chloride 1,000 ml @ 75 mls/hr 1X ONCE IV Last administered on 05/11/17 12:47; Start 05/11/17 at 10:15; Stop 05/11/17 at 23 :34; Status DC Oxycodone/ Acetaminophen (Percocet 5/325) 1 tab PRN Q4HRS PRN PO PAIN; Start 05/11/17 at 11:30; Stop 05/11/17 at 12:56; Status DC Oxycodone/ Acetaminophen (Percocet 10/325) 1 tab PRN Q4HRS PRN PO pain Last administered on 05/13/17 08:48; Start 05/11/17 at 11:30 Docusate Sodium (Colace) 100 mg BID PO Last administered on 05/13/17 08:42; Start 05/11/17 at 21:00 Polyethylene Glycol (miraLAX PACKET) 17 gm DAILY PO Last administered on 08:42; Start 05/11/17 at 12:00 Magnesium Hydroxide (Milk Of Magnesia) 2,400 mg PRN DAILY PRN PO CONSTIPATION; Start 05/11/17 at 11:30 Active Scripts Active Oxycodone-Acetaminophen 5-325 (Oxycodone Hcl/Acetaminophen) 1 Each Tablet 1 Tab PO PRN Q4HRS PRN Culturelle (Lactobacillus Rhamnosus Gg) 1 Each Cap.sprink 1 Cap PO BID Amox Tr-K Clv 875-125 Mg Tab (Amoxicillin/Potassium Clav) 1 Each Tablet 1 Tab PO BID Vital Signs Vital Signs Date Time Temp Pulse Resp B/P (MAP) Pulse Ox O2 Delivery O2 Flow Rate FiO2 05/13/17 11:00 97.7 79 18 133/71 (91) 94 Room Air 97.7 Labs Laboratory Tests Test 05/11/17 14:25 05/12/17 03:50 05/13/17 03:15 12/14/17 12:00 Hepatitis A IgM Antibody Negative (Negative) Hepatitis B Surface Antigen Negative (Negative) Hepatitis B Core IgM Antibody Negative (Negative) Hepatitis C Antibody >11.0 s/co ratio Total Bilirubin 1.2 mg/dL (0.2-1.0) 1.3 mg/dL (0.2-1.0) Direct Bilirubin 0.5 mg/dL (0.0-0.2) Aspartate Amino Transf (AST/SGOT) 58 U/L (15-37) 43 U/L (15-37) Alanine Aminotransferase (ALT/SGPT) 71 U/L (14-59) 54 U/L (14-59) Alkaline Phosphatase 215 U/L (46-116) 215 U/L (46-116) Total Protein 6.3 g/dL (6.4-8.2) 6.5 g/dL (6.4-8.2) Albumin 2.1 g/dL (3.4-5.0) 2.2 g/dL (3.4-5.0) White Blood Count 9.8 x10^3/uL (4.0-11.0) Red Blood Count 2.93 x10^6/uL (3.50-5.40) Hemoglobin 8.4 g/dL (12.0-15.5) Hematocrit 25.4 % (36.0-47.0) Mean Corpuscular Volume 87 fL (79-100) Mean Corpuscular Hemoglobin 29 pg (25-35) Mean Corpuscular Hemoglobin Concent 33 g/dL (31-37) Red Cell Distribution Width 15.8 % (11.5-14.5) Platelet Count 294 x10^3/uL (140-400) Neutrophils (%) (Auto) 77 % (31-73) Lymphocytes (%) (Auto) 11 % (24-48) Monocytes (%) (Auto) 10 % (0-9) Eosinophils (%) (Auto) 2 % (0-3) Basophils (%) (Auto) 0 % (0-3) Neutrophils # (Auto) 7.6 x10^3uL (1.8-7.7) Lymphocytes # (Auto) 1.1 x10^3/uL (1.0-4.8) Monocytes # (Auto) 0.9 x10^3/uL (0.0-1.1) Eosinophils # (Auto) 0.2 x10^3/uL (0.0-0.7) Basophils # (Auto) 0.0 x10^3/uL (0.0-0.2) Sodium Level 137 mmol/L (136-145) 138 mmol/L (136-145) Potassium Level 3.6 mmol/L (3.5-5.1) 3.5 mmol/L (3.5-5.1) Chloride Level 102 mmol/L (98-107) 101 mmol/L (98-107) Carbon Dioxide Level 27 mmol/L (21-32) 28 mmol/L (21-32) Anion Gap 8 (6-14) 9 (6-14) Blood Urea Nitrogen 11 mg/dL (7-20) 10 mg/dL (7-20) Creatinine 0.7 mg/dL (0.6-1.0) 0.7 mg/dL (0.6-1.0) Estimated GFR (Cockcroft-Gault) 87.2 87.2 BUN/Creatinine Ratio 16 (6-20) Glucose Level 109 mg/dL (70-99) 117 mg/dL (70-99) Calcium Level 8.2 mg/dL (8.5-10.1) 8.3 mg/dL (8.5-10.1) Albumin/Globulin Ratio 0.5 (1.0-1.7) C-Reactive Protein, Quantitative 144.3 mg/L (0-3.3) Laboratory Tests Test 05/13/17 03:15 05/13/17 12:00 White Blood Count 9.8 x10^3/uL (4.0-11.0) Red Blood Count 2.93 x10^6/uL (3.50-5.40) Hemoglobin 8.4 g/dL (12.0-15.5) Hematocrit 25.4 % (36.0-47.0) Mean Corpuscular Volume 87 fL (79-100) Mean Corpuscular Hemoglobin 29 pg (25-35) Mean Corpuscular Hemoglobin Concent 33 g/dL (31-37) Red Cell Distribution Width 15.8 % (11.5-14.5) Platelet Count 294 x10^3/uL (140-400) Neutrophils (%) (Auto) 77 % (31-73) Lymphocytes (%) (Auto) 11 % (24-48) Monocytes (%) (Auto) 10 % (0-9) Eosinophils (%) (Auto) 2 % (0-3) Basophils (%) (Auto) 0 % (0-3) Neutrophils # (Auto) 7.6 x10^3uL (1.8-7.7) Lymphocytes # (Auto) 1.1 x10^3/uL (1.0-4.8) Monocytes # (Auto) 0.9 x10^3/uL (0.0-1.1) Eosinophils # (Auto) 0.2 x10^3/uL (0.0-0.7) Basophils # (Auto) 0.0 x10^3/uL (0.0-0.2) Sodium Level 137 mmol/L (136-145) 138 mmol/L (136-145) Potassium Level 3.6 mmol/L (3.5-5.1) 3.5 mmol/L (3.5-5.1) Chloride Level 102 mmol/L (98-107) 101 mmol/L (98-107) Carbon Dioxide Level 27 mmol/L (21-32) 28 mmol/L (21-32) Anion Gap 8 (6-14) 9 (6-14) Blood Urea Nitrogen 11 mg/dL (7-20) 10 mg/dL (7-20) Creatinine 0.7 mg/dL (0.6-1.0) 0.7 mg/dL (0.6-1.0) Estimated GFR (Cockcroft-Gault) 87.2 87.2 BUN/Creatinine Ratio 16 (6-20) Glucose Level 109 mg/dL (70-99) 117 mg/dL (70-99) Calcium Level 8.2 mg/dL (8.5-10.1) 8.3 mg/dL (8.5-10.1) Total Bilirubin 1.3 mg/dL (0.2-1.0) Aspartate Amino Transf (AST/SGOT) 43 U/L (15-37) Alanine Aminotransferase (ALT/SGPT) 54 U/L (14-59) Alkaline Phosphatase 215 U/L (46-116) Total Protein 6.5 g/dL (6.4-8.2) Albumin 2.2 g/dL (3.4-5.0) Albumin/Globulin Ratio 0.5 (1.0-1.7) C-Reactive Protein, Quantitative 144.3 mg/L (0-3.3) Allergies Allergies Coded Allergies Type Severity Reaction Last Updated Verified tetanus and diphtheria toxoids Allergy Intermediate 05/06/17 Yes Disposition/Orders: D/C to Home Patient Instructions SEE SURGERY 4-5 DAYS, RETURN IF PAIN INCREASES KIT BAUER MD May 13, 2017 13:01
--- NOTE | 2017-05-13 13:08 | DISCH ---
DISCHARGE INSTRUCTIONS Condition on Discharge Condition on Discharge: Stable Activity After Discharge Activity Instructions for Disc: Activity as tolerated Bathing Instructions: Shower-keep dressing dry Lifting Instructions after Dis: No heavy lifting, No pulling or pushing, Do not lift >10 pounds Diet after Discharge Diet after Discharge: Cardiac Wound Incision Care Wound/Incision Care: Do not change dressing Checks after Discharge Checks after discharge: Check blood press - daily Contacting the DR. after DC Call your doctor for: If your condition worsens Treatment/Equipment after DC Adaptive Equipment Issued: None KIT BAUER MD May 13, 2017 13:08
[2017-05-13] MEDS ORDERED: ACET325T9 PO (13:36)
[2017-05-13] MEDS ORDERED: AMOX1TAB61 PO (13:36)
--- NOTE | 2017-05-13 22:14 | CONS ---
DATE OF CONSULTATION: 05/13/2017 REQUESTING PHYSICIAN: Dr. Allen. REASON FOR CONSULTATION: Gallbladder fossa possible abscess. HISTORY OF PRESENT ILLNESS: This is a 56-year-old female who had recently undergone cholecystectomy on 05/05/2017. The patient was discharged. The patient returned with abdominal pain. The patient also is constipated. The patient had CAT scan done, which showed gallbladder fossa fluid, biloma or hematoma or abscess cannot be ruled out. The patient then had a HIDA scan which was negative for bile leak and then even MRCP done. The patient is feeling better. The patient does not have any fever. White count is normal as she came in at 12, but now is back to normal and the patient has slight discomfort in the area and wants to go home. The patient did have an elevated liver function tests which is improving and the patient is currently receiving Zosyn. No nausea, vomiting, diarrhea. Denies any chest pain, shortness of breath, minimal abdominal pain. Denies any urinary symptoms, headache, or visual symptoms. PAST MEDICAL HISTORY: Positive for prior 3 C-sections in the past, obesity, chronic constipation. SOCIAL HISTORY: Positive for smoking until 10 days ago. No alcohol use or drug use. ALLERGIES: Listed as allergic to TETANUS AND DIPHTHERIA TOXOID. REVIEW OF SYSTEMS: As per HPI. All other systems reviewed are negative. CURRENT MEDICATIONS: Reviewed. The patient is on Zosyn. PHYSICAL EXAMINATION: GENERAL: Alert, oriented female, not in any distress. VITAL SIGNS: Stable, afebrile. HEENT: NAD. NECK: Supple, no JVP, no lymphadenopathy. LUNGS: Clear. HEART: S1, S2 regular. ABDOMEN: Benign. The patient's laparoscopic incision is unremarkable for any infection. EXTREMITIES: No edema, cyanosis. SKIN: Unremarkable. NEUROLOGIC: The patient is neurologically intact. LABORATORY DATA: White count is 9.8, down from 12,000. BUN and creatinine is normal. Liver functions are improving and the scans that I mentioned in HPI. IMPRESSION AND PLAN: Abdominal pain with right-sided gallbladder fossa fluid collection, probably hematoma, clinically appears to be less likely to be infection. I did discuss with the patient in detail about there is really no way to know for sure unless we put a needle in the area, so Surgery prefers not to do it and the patient prefers not to do it, so I explained to her most likely if it is hematoma, it will resolve and it will go away. If there is any infection and potentially she could have more pain and/or fever, then she needs to come back. This was clearly discussed with the patient and explained. The patient understands and she wants to go home. We will put her on oral Augmentin. Discussion with Dr. Allen done. Thank you very much, Dr. Allen for giving me the opportunity to participate in this patient's care. TAYLOR GARCIA MD DR: MANNIE/shanna JOB#: [id number] / [id number]
== END 2017-05-13 14:30 | disposition home or self-care (01) | DRG 947 ==
LOC: ER 11:37 → 4 NORTH 16:05
PROVIDERS: ADMIT Internal Medicine Hematology & Oncology; ATTEND Internal Medicine Hematology & Oncology
DX: G89.18 Other acute postprocedural pain (principal); K66.1 Hemoperitoneum; E66.01 Morbid (severe) obesity due to excess calories; C18.9 Malignant neoplasm of colon, unspecified; K76.0 Fatty (change of) liver, not elsewhere classified; K80.10 Calculus of gallbladder with chronic cholecystitis without obstruction; B19.20 Unspecified viral hepatitis C without hepatic coma; D64.9 Anemia, unspecified; F17.210 Nicotine dependence, cigarettes, uncomplicated; O34.219 Maternal care for unspecified type scar from previous cesarean delivery; K21.9 Gastro-esophageal reflux disease without esophagitis; K57.10 Diverticulosis of small intestine without perforation or abscess without bleeding; K59.09 Other constipation; Z80.9 Family history of malignant neoplasm, unspecified; Z82.49 Family history of ischemic heart disease and other diseases of the circulatory system; Z68.41 Body mass index [BMI] 40.0-44.9, adult; Z83.3 Family history of diabetes mellitus; Z90.49 Acquired absence of other specified parts of digestive tract
CPT/HCPCS: 36415; 74177; 74181; 78226; 80048; 80053; 80074; 80076; 81001; 83605; 83690; 85025; 85651; 86140; 93005; 96361; 96374; 96375; 96376; A9537; J2270; J2405; J2543; J3010; J7030; Q9967; 99285-25